=== PATIENT | female | born 1965 | race Caucasian/White ===

== ENCOUNTER → 2017-09-06 | Day surgery (SDC) | payer BC ==
[~2017-09-06] MED LIST: ALBUTEROL SULF8.5 GM; CARVEDILOL12.5 MG PO; FARXIGA PO; FENTANYL CITRATE/PF 100MCG/2 ML INJ ONE; FUROSEMIDE40 MG PO; GLIMEPIRIDE4 MG PO; HYDRALAZINE HCL 20 MG/ML VIAL ONE; HYDRALAZINE HCL25 MG PO; INSULIN REGULAR, HUMAN 100 UNIT/1 ML 3ML VIAL ONE; K DUR10 MEQ PO; LASIX40 MG PO; LEVAQUIN500 MG PO; LISINOPRIL10 MG PO; LOSARTAN POTAS100 MG PO; METFORMIN HCL500 MG PO; METOLAZONE5 MG PO; MIDAZOLAM HCL 2 MG/2 ML VIAL ONE; OR PHACO EYE KIT ONE; PIOGLITAZONE HC45 MG PO; PREOP PHACO EYE KIT ONE; TRIAMTERENE-HCTZ1 EA PO; Z.0.ABILIFY10 MG PO; Z.0.ACTOS15 MG PO; Z.0.GLIPIZIDE10 MG PO; Z.0.JANUVIA25 MG PO; Z.0.LAMICTAL200 MG PO
== END | disposition home or self-care (01) ==
LOC: OR 05:00
PROVIDERS: ATTEND Ophthalmology
DX: H25.12 Age-related nuclear cataract, left eye (principal); E11.9 Type 2 diabetes mellitus without complications; I11.0 Hypertensive heart disease with heart failure; I50.42 Chronic combined systolic (congestive) and diastolic (congestive) heart failure; F32.9 Major depressive disorder, single episode, unspecified
CPT/HCPCS: 66984; J0360; J2250; V2632

== ENCOUNTER 2017-12-11 09:07 | Inpatient (IN) | payer BC ==
[~2017-12-11] VITALS: Ht 160 cm; Wt 104.3 kg
[~2017-12-11 09:07] MED LIST changes: -FENTANYL CITRATE/PF 100MCG/2 ML INJ ONE; -HYDRALAZINE HCL 20 MG/ML VIAL ONE; -INSULIN REGULAR, HUMAN 100 UNIT/1 ML 3ML VIAL ONE; -MIDAZOLAM HCL 2 MG/2 ML VIAL ONE; -OR PHACO EYE KIT ONE; -PREOP PHACO EYE KIT ONE
[2017-12-11] MEDS ORDERED: LEVAQUIN500 MG PO (09:31)
[2017-12-11] MEDS ORDERED: MORPHINE SULFATE 4 MG/ML SYR IV STA (10:17)
[2017-12-11] MEDS ORDERED: SODIUM CHLORIDE 0.9% 1000ML 1,000 ML IV STA (10:17)
[2017-12-11 10:31] LABS: BASOPHILS # (AUTO) 0.1 (0.0-0.1); BASOPHILS % 0.4 % (0.0-1.0); EOSINOPHILS # (AUTO) 0.3 (0.0-0.4); EOSINOPHILS % 2.2 % (0.0-6.0); HEMATOCRIT 31.1 % (34.2-44.1); HEMOGLOBIN 10.1 g/dL (12.0-16.0); LYMPHOCYTES # (AUTO) 2.1 (1.0-3.2); LYMPHOCYTES % 14.1 % (18.0-39.1); MEAN CORPUSCULAR HEMOGLOBIN 25.8 pg (28-32); MEAN CORPUSCULAR HGB CONC 32.5 g/dL (31-35); MEAN CORPUSCULAR VOLUME 79.5 fL (81-99); MONOCYTES # (AUTO) 0.9 (0.2-0.8); MONOCYTES % 5.9 % (4.4-11.3); NEUTROPHILS # (AUTO) 11.1 (2.1-6.9); NEUTROPHILS % 76.5 % (38.7-80.0); PLATELET COUNT 469 x10e3/uL (140-360); RED BLOOD COUNT 3.91 x10e6/uL (3.6-5.1); RED CELL DISTRIBUTION WIDTH 14.7 % (11.7-14.4)
[2017-12-11 10:35] LABS: INR 1.15; PARTIAL THROMBOPLASTIN TIME 29.4 seconds (23.8-35.5); PROTHROMBIN TIME 13.8 seconds (11.9-14.5)
[2017-12-11] MEDS ORDERED: MORPHINE SULFATE 2 MG/ML SYR ONE (10:36)
[2017-12-11 10:45] LABS: ALANINE AMINOTRANSFERASE 10 IU/L (0-55); ALBUMIN/GLOBULIN RATIO 0.8 (0.8-2.0); ALKALINE PHOSPHATASE 118 IU/L (40-150); AMYLASE 34 U/L (25-125); ANION GAP 16.5 mmol/L (8-16); BLOOD UREA NITROGEN 67 mg/dL (7-26); BUN/CREATININE RATIO 30 (6-25); CALCIUM 9.2 mg/dL (8.4-10.2); CARBON DIOXIDE 17 mmol/L (22-29); CHLORIDE 106 mmol/L (98-107); CREATINE KINASE 67 IU/L (29-168); CREATININE, SERUM 2.24 mg/dL (0.57-1.11); EST GLOMERULAR FILTRATION RATE 23 ML/MIN (60-); GLUCOSE 232 mg/dL (74-118); LIPASE 11 U/L (8-78); POTASSIUM 4.5 mmol/L (3.5-5.1); SODIUM 135 mmol/L (136-145)
[2017-12-11] MEDS ORDERED: ONDANSETRON HCL INJ 2 MG/ML VIAL IV ONE (11:00)
[2017-12-11] MEDS ORDERED: DIATRIZOATE MEGL/DIATRIZOA SOD 30 ML BTL PO ONE (11:05)
--- NOTE | 2017-12-11 11:55 | Diagnostic Imaging Report ---
EXAM: US GALLBLADDER DATE: 12/11/2017 10:17 AM INDICATION: \S\ABD PAIN \S\[id number] \S\1050 \S\Y COMPARISON: None FINDINGS: Bowel gas obscures detail. Aorta and pancreas are suboptimally evaluated. Liver measures 15.4 cm with no definite focal mass. Portal venous flow is normal. Echotexture is unremarkable. No shadowing gallstones identified. Common duct is normal at 0.5 cm. No wall thickening or pericholecystic fluid. Right kidney measures 10 cm. Echogenic foci measuring 0.6 cm and 1.2 cm present, possibly representing cortical calcifications or nonobstructing calculi. IMPRESSION: Within limitations of body habitus and bowel gas, no definite acute finding. Signed by: Dr. Saul Hyatt MD on 12/11/2017 11:51 AM
--- NOTE | 2017-12-11 13:34 | Diagnostic Imaging Report ---
EXAM: CT Abdomen and Pelvis WITHOUT contrast INDICATION: Abdominal pain COMPARISON: Same day ultrasound TECHNIQUE: Abdomen and Pelvis was scanned utilizing a multidetector helical scanner without the use of IV contrast. Coronal and sagittal reformations were obtained. IV CONTRAST: None COMPLICATIONS: None RADIATION DOSE: Total DLP: 861 mGy*cm Estimated effective dose: (DLP x 0.015 x size factor) mSv CTDIvol has been reviewed. It is below the limits set by the Radiation Protocol Committee (RPC). FINDINGS: Abdomen: Lung Bases: Atelectasis. Moderate inferior pericardial effusion partially visualized. Solid Organs: Nonenhanced images solid organs unremarkable. Mild bilateral perinephric stranding statistically senescent. Upper GI Tract: Small hiatal hernia. No small bowel obstructive change. Vascularity: Moderate mesenteric atherosclerotic changes. No aortic aneurysm. Lymph Nodes: No suspicious adenopathy. Other: None. Pelvis: Bladder: Unremarkable. Other: Iliac vascular calcifications. Uterus/adnexa poorly evaluated nonenhanced CT, grossly unremarkable. Probable small calcified fibroid on the right. Colon: No acute colonic findings. Bones: Moderate L5-S1 degenerative disc disease. Probable T11 bone island. IMPRESSION: 1. No acute findings abdomen or pelvis. 2. Vascular calcifications most notably in the mesenteric arteries and iliac arteries. Correlation for diabetes. 3. L5-S1 degenerative disc disease. 4. Partially visualized pericardial effusion. Correlation recommended. Signed by: Dr. Saul Hyatt MD on 12/11/2017 1:31 PM
[2017-12-11] MEDS ORDERED: ONDANSETRON HCL INJ 2 MG/ML VIAL IV PRN (14:45)
[2017-12-11] MEDS ORDERED: MORPHINE SULFATE 2 MG/ML SYR IV PRN (14:45)
[2017-12-11] MEDS: SODIUM CHLORIDE 0.9% 1000ML 1,000 ML IV SCH (14:58)
[2017-12-11] MEDS ORDERED: SODIUM CHLORIDE 0.9% 1000ML 1,000 ML ONE (15:00)
--- OUTSIDE RECORDS SUMMARY | 2017-12-11 15:27 | XMS REPORT ---
Author Author [facility] Address Unknown Phone Unavailable Care Team Providers Care Copying Machine Mechanic Name Role Phone BILLY FENTON Unavailable Unavailable Problems This patient has no known problems. Allergies, Adverse Reactions, Alerts This patient has no known allergies or adverse reactions. Medications This patient has no known medications. Results Test Description Test Time Test Comments Text Results Atomic Results Result Comments CT ABDOMEN/PELVIS WO [place] [address] Patient Name: JEN LARA MR #: [id number] : 1965 Age/Sex: 52/F Req #: [id number] Adm Physician: Ordered by: STEFFANY WALDRON STOCK GRADER Report #: [id number] Location: ER Room/Bed: Procedure: [id number] CT/CT ABDOMEN/PELVIS WO Exam Date: 12/11/17 Exam Time: 1306 REPORT STATUS: Signed EXAM: CT Abdomen and Pelvis WITHOUT contrast INDICATION: Abdominal pain COMPARISON : Same day ultrasound TECHNIQUE: Abdomen and Pelvis was scanned utilizing a multidetector helical scanner without the use of IV contrast. Coronal and sagittal reformations were obtained. IV CONTRAST: None COMPLICATIONS: None RADIATION DOSE: Total DLP: 861 mGy*cm Estimated effective dose: (DLP x 0.015 x size factor) mSv CTDIvol has been reviewed. It is below the limits set by the Radiation Protocol Committee (RPC). FINDINGS: Abdomen: Lung Bases: Atelectasis. Moderate inferior pericardial effusion partially visualized. Solid Organs: Nonenhanced images solid organs unremarkable. Mild bilateral perinephric stranding statistically senescent. Upper GI Tract: Small hiatal hernia. No small bowel obstructive change. Vascularity: Moderate mesenteric atherosclerotic changes. No aortic aneurysm. Lymph Nodes: No suspicious adenopathy. Other: None. Pelvis: Bladder: Unremarkable. Other: Iliac vascular calcifications. Uterus/adnexa poorly evaluated nonenhanced CT, grossly unremarkable. Probable small calcified fibroid on the right. Colon: No acute colonic findings. Bones: Moderate L5-S1 degenerative disc disease. Probable T11 bone island. IMPRESSION: 1. No acute findings abdomen or pelvis. 2. Vascular calcifications most notably in the mesenteric arteries and iliac arteries. Correlation for diabetes. 3. L5-S1 degenerative disc disease. 4. Partially visualized pericardial effusion. Correlation recommended. Signed by: Dr. Saul Hyatt MD on 12/11/2017 1:31 PM Dictated By: SAUL HYATT MD 1331 Transcribed By: CARLOS on 12/11/17 1331 COPY TO: STEFFANY WALDRON NP US GALLBLADDER [place] [address] Patient Name: JEN LARA MR #: [id number] : 1965 Age/Sex: 52/F Req #: [id number] Adm Physician: Ordered by: STEFFANY WALDRON STOCK GRADER Report #: [id number] Location: ER Room/Bed: Procedure: [id number] US/US GALLBLADDER Exam Date: 12/11/17 Exam Time : 1050 REPORT STATUS: Signed EXAM: US GALLBLADDER DATE: 12/11/2017 10:17 AM INDICATION: COMPARISON: None FINDINGS: Bowel gas obscures detail. Aorta and pancreas are suboptimally evaluated. Liver measures 15.4 cm with no definite focal mass. Portal venous flow is normal. Echotexture is unremarkable. No shadowing gallstones identified. Common duct is normal at 0.5 cm. No wall thickening or pericholecystic fluid. Right kidney measures 10 cm. Echogenic foci measuring 0.6 cm and 1.2 cm present, possibly representing cortical calcifications or nonobstructing calculi. IMPRESSION: Within limitations of body habitus and bowel gas, no definite acute finding. Signed by: Dr. Saul Hyatt MD on 12/11/2017 11:51 AM Dictated By: SAUL HYATT MD 1151 Transcribed By: CARLOS on 12/11/17 1151 COPY TO: STEFFANY WALDRON NP
[2017-12-11 16:00] VITALS: BP 190/80
[2017-12-11 16:14] LABS: BILIRUBIN,URINE NEGATIVE (NEGATIVE); COLOR,URINE YELLOW (YELLOW); KETONES,URINE NEGATIVE (NEGATIVE); LEUKOCYTE ESTERASE ,URINE 2+ (NEGATIVE); NITRITE,URINE NEGATIVE (NEGATIVE); URINE UROBILINOGEN 0.2 mg/dL (0.2 - 1)
[2017-12-11 16:16] LABS: CLARITY,URINE SL CLOUDY (CLEAR); PROTEIN,URINE DIPSTICK 1+ (NEGATIVE)
[2017-12-11 16:20] VITALS: BP 190/80
[2017-12-11 16:28] LABS: BACTERIA,URINE MODERATE /HPF; EPITHELIAL CELLS,URINE MANY /LPF; RBC,URINE 0-5 /HPF (0-5); WBC,URINE (MAN) >50 /HPF (0-5)
[2017-12-11] MEDS ORDERED: CLONIDINE HCL 0.1 MG TAB PO PRN (16:30)
[2017-12-11] MEDS: INSULIN REGULAR, HUMAN 100 UNIT/1 ML 3ML VIAL SQ SCH ×2 (16:30→20:55)
[2017-12-11] MEDS ORDERED: DEXTROSE 50% SYRINGE 50 ML IV PRN (16:45)
[2017-12-11] MEDS: CARVEDILOL 12.5 MG TAB PO SCH (17:11)
[2017-12-11] MEDS: METFORMIN HCL 500 MG TAB PO SCH (17:11)
[2017-12-11 19:57] VITALS: BP 142/70
[2017-12-11 20:00] VITALS: BP 142/70
[2017-12-11] MEDS: LEVOFLOXACIN 500MG/D5W 100ML 100 ML IV SCH (20:54)
[2017-12-11] MEDS: LOSARTAN POTASSIUM 100 MG TAB PO SCH (20:54)
[2017-12-11] MEDS ORDERED: INSULIN REGULAR, HUMAN 100 UNIT/1 ML 3ML VIAL SQ SCH (21:00)
[2017-12-11] MEDS ORDERED: PIPER-TAZ 3.375 GM/50 ML BAG IV SCH (22:00)
[2017-12-12 00:28] VITALS: BP 138/71
[2017-12-12] MEDS: SODIUM CHLORIDE 0.9% 1000ML 1,000 ML IV SCH ×4 (00:56→22:40)
[2017-12-12 05:51] VITALS: BP 159/78
[2017-12-12 06:45] LABS: BASOPHILS % 0.3 % (0.0-1.0); EOSINOPHILS # (AUTO) 0.3 (0.0-0.4); EOSINOPHILS % 2.3 % (0.0-6.0); HEMATOCRIT 25.2 % (34.2-44.1); HEMOGLOBIN 8.1 g/dL (12.0-16.0); LYMPHOCYTES # (AUTO) 2.1 (1.0-3.2); LYMPHOCYTES % 19.1 % (18.0-39.1); MEAN CORPUSCULAR HGB CONC 32.1 g/dL (31-35); MEAN CORPUSCULAR VOLUME 80.8 fL (81-99); MONOCYTES # (AUTO) 0.9 (0.2-0.8); MONOCYTES % 7.7 % (4.4-11.3); NEUTROPHILS # (AUTO) 7.8 (2.1-6.9); NEUTROPHILS % 69.9 % (38.7-80.0); PLATELET COUNT 339 x10e3/uL (140-360); RED BLOOD COUNT 3.12 x10e6/uL (3.6-5.1); RED CELL DISTRIBUTION WIDTH 14.6 % (11.7-14.4)
[2017-12-12 07:15] LABS: ALANINE AMINOTRANSFERASE 8 IU/L (0-55); ALBUMIN 2.4 g/dL (3.5-5.0); ALBUMIN/GLOBULIN RATIO 0.8 (0.8-2.0); ALKALINE PHOSPHATASE 85 IU/L (40-150); AMYLASE 27 U/L (25-125); ANION GAP 12.3 mmol/L (8-16); BLOOD UREA NITROGEN 57 mg/dL (7-26); BUN/CREATININE RATIO 31 (6-25); CALCIUM 8.1 mg/dL (8.4-10.2); CARBON DIOXIDE 15 mmol/L (22-29); CHLORIDE 111 mmol/L (98-107); CREATININE, SERUM 1.82 mg/dL (0.57-1.11); EST GLOMERULAR FILTRATION RATE 29 ML/MIN (60-); GLUCOSE 99 mg/dL (74-118); LIPASE 5 U/L (8-78); POTASSIUM 4.3 mmol/L (3.5-5.1); SODIUM 134 mmol/L (136-145)
[2017-12-12] MEDS: INSULIN REGULAR, HUMAN 100 UNIT/1 ML 3ML VIAL SQ SCH ×4 (07:30→22:30)
[2017-12-12 08:00] VITALS: BP 160/68
[2017-12-12] MEDS: FUROSEMIDE 40 MG TAB PO SCH (08:51)
[2017-12-12] MEDS: CARVEDILOL 12.5 MG TAB PO SCH ×2 (08:51→17:16)
[2017-12-12] MEDS: METFORMIN HCL 500 MG TAB PO SCH ×2 (08:51→17:16)
[2017-12-12 12:00] VITALS: BP 140/67
[2017-12-12 16:00] VITALS: BP 155/67
[2017-12-12 20:00] VITALS: BP 157/70
[2017-12-12] MEDS: LEVOFLOXACIN 500MG/D5W 100ML 100 ML IV SCH (22:30)
[2017-12-12] MEDS: LOSARTAN POTASSIUM 100 MG TAB PO SCH (22:30)
[2017-12-13] VITALS: BP 141/62
[2017-12-13 04:20] VITALS: BP 159/70
[2017-12-13] MEDS: SODIUM CHLORIDE 0.9% 1000ML 1,000 ML IV SCH (06:15)
[2017-12-13 06:37] LABS: BASOPHILS % 0.3 % (0.0-1.0); EOSINOPHILS # (AUTO) 0.4 (0.0-0.4); HEMATOCRIT 26.9 % (34.2-44.1); HEMOGLOBIN 8.8 g/dL (12.0-16.0); LYMPHOCYTES # (AUTO) 2.3 (1.0-3.2); LYMPHOCYTES % 19.9 % (18.0-39.1); MEAN CORPUSCULAR HEMOGLOBIN 26.2 pg (28-32); MEAN CORPUSCULAR HGB CONC 32.7 g/dL (31-35); MEAN CORPUSCULAR VOLUME 80.1 fL (81-99); MONOCYTES % 8.5 % (4.4-11.3); NEUTROPHILS # (AUTO) 7.9 (2.1-6.9); NEUTROPHILS % 67.6 % (38.7-80.0); PLATELET COUNT 365 x10e3/uL (140-360); RED BLOOD COUNT 3.36 x10e6/uL (3.6-5.1); RED CELL DISTRIBUTION WIDTH 14.7 % (11.7-14.4)
[2017-12-13 06:54] LABS: ALANINE AMINOTRANSFERASE 7 IU/L (0-55); ALBUMIN 2.7 g/dL (3.5-5.0); ALBUMIN/GLOBULIN RATIO 0.8 (0.8-2.0); ALKALINE PHOSPHATASE 93 IU/L (40-150); ANION GAP 16.1 mmol/L (8-16); BLOOD UREA NITROGEN 46 mg/dL (7-26); BUN/CREATININE RATIO 29 (6-25); CALCIUM 8.4 mg/dL (8.4-10.2); CARBON DIOXIDE 12 mmol/L (22-29); CHLORIDE 114 mmol/L (98-107); CREATININE, SERUM 1.56 mg/dL (0.57-1.11); EST GLOMERULAR FILTRATION RATE 35 ML/MIN (60-); GLUCOSE 126 mg/dL (74-118); POTASSIUM 4.1 mmol/L (3.5-5.1); SODIUM 138 mmol/L (136-145)
[2017-12-13] MEDS: INSULIN REGULAR, HUMAN 100 UNIT/1 ML 3ML VIAL SQ SCH ×2 (07:30→11:30)
[2017-12-13 08:00] VITALS: BP 149/65
[2017-12-13] MEDS: METFORMIN HCL 500 MG TAB PO SCH (08:55)
[2017-12-13] MEDS: CARVEDILOL 12.5 MG TAB PO SCH (08:55)
[2017-12-13] MEDS: FUROSEMIDE 40 MG TAB PO SCH (08:57)
[2017-12-13 12:00] VITALS: BP 146/61
== END 2017-12-13 14:30 | disposition home or self-care (01) | DRG 690 ==
LOC: ER 09:18 → ERHOLD 15:24 → MED/SURG2 15:26
PROVIDERS: ADMIT Internal Medicine; ATTEND Internal Medicine
DX: N39.0 Urinary tract infection, site not specified (principal); N17.9 Acute kidney failure, unspecified; E11.22 Type 2 diabetes mellitus with diabetic chronic kidney disease; N18.3 Chronic kidney disease, stage 3 (moderate); I12.9 Hypertensive chronic kidney disease with stage 1 through stage 4 chronic kidney disease, or unspecified chronic kidney disease; E86.0 Dehydration; F31.9 Bipolar disorder, unspecified
CPT/HCPCS: 36415; 74176; 76705; 80053; 81001; 82150; 82550; 82553; 82948; 83690; 83735; 83880; 84484; 85025; 85610; 85730; 93005; 99284; J1956; J2270; J2405; J7030

== ENCOUNTER 2018-09-28 11:39 | Inpatient (IN) | payer BC ==
[~2018-09-28] VITALS: Ht 160 cm; Wt 112.0 kg
[2018-09-28] MEDS ORDERED: FUROSEMIDE INJ 10 MG/ML 4 ML VIAL IV ONE (12:15)
[2018-09-28 12:25] LABS: BASOPHILS # (AUTO) 0.1 (0.0-0.1); BASOPHILS % 0.4 % (0.0-1.0); EOSINOPHILS # (AUTO) 0.4 (0.0-0.4); EOSINOPHILS % 2.7 % (0.0-6.0); HEMATOCRIT 27.3 % (34.2-44.1); HEMOGLOBIN 8.7 g/dL (12.0-16.0); LYMPHOCYTES # (AUTO) 2.3 (1.0-3.2); LYMPHOCYTES % 15.3 % (18.0-39.1); MEAN CORPUSCULAR HEMOGLOBIN 25.3 pg (28-32); MEAN CORPUSCULAR HGB CONC 31.9 g/dL (31-35); MEAN CORPUSCULAR VOLUME 79.4 fL (81-99); MONOCYTES # (AUTO) 1.2 (0.2-0.8); MONOCYTES % 8.1 % (4.4-11.3); NEUTROPHILS % 72.9 % (38.7-80.0); PLATELET COUNT 485 x10e3/uL (140-360); RED BLOOD COUNT 3.44 x10e6/uL (3.6-5.1); RED CELL DISTRIBUTION WIDTH 14.2 % (11.7-14.4)
[2018-09-28 12:46] LABS: ALBUMIN 2.6 g/dL (3.5-5.0); ALBUMIN/GLOBULIN RATIO 0.7 (0.8-2.0); ANION GAP 15.7 mmol/L (8-16); CALCIUM 8.8 mg/dL (8.4-10.2); CREATININE, SERUM 2.24 mg/dL (0.57-1.11); POTASSIUM 3.7 mmol/L (3.5-5.1)
[2018-09-28 12:54] LABS: CREATINE KINASE MB 3.9 ng/mL (0-5.0)
--- NOTE | 2018-09-28 14:15 | Diagnostic Imaging Report ---
Examination: Single AP view of the chest. COMPARISON: 03/30/2017 INDICATION: CHF DISCUSSION: As before, the cardiac silhouette is mildly enlarged. The lungs are well-inflated and without focal consolidation, pleural effusion, or pneumothorax. Pulmonary vasculature is within normal limits when accounting for portable, AP technique, without evidence of pulmonary edema. No acute osseous abnormality. IMPRESSION: Mild enlargement of the cardiac silhouette without vascular decompensation. Signed by: Dr. Jerzy Cárdenas M.D. on 09/28/2018 2:11 PM
[2018-09-28] MEDS ORDERED: AZITHROMYCIN 500MG/NS 250 ML 250 ML IV SCH ×2 (15:15→16:00)
[2018-09-28] MEDS ORDERED: CEFTRIAXONE SOD 1 GM/NS 50 ML 50 ML IV ONE (15:15)
--- NOTE | 2018-09-28 15:45 | NUR ---
RECD PT FROM ER VIA W/C,AAOX3,O2 2L NC IN PLACE O2 SATS 97%,IV 20 G TO RAC,
[2018-09-28] MEDS ORDERED: NIFEDIPINE ER30 M1 PO (15:53)
[2018-09-28] MEDS ORDERED: VITAMIN D1000 UNI1 PO (15:53)
[2018-09-28 15:55] VITALS: BP 195/97
[2018-09-28] MEDS ORDERED: DULAGLUTIDE IM (15:55)
[2018-09-28] MEDS ORDERED: JANUVIA100 MG PO (15:55)
[2018-09-28] MEDS ORDERED: DULAGLUTIDE 1.5 MG IM SCH (16:15)
[2018-09-28 16:30] VITALS: BP 197/97
[2018-09-28] MEDS ORDERED: DEXTROSE 50% SYRINGE 50 ML IV PRN (16:30)
[2018-09-28] MEDS ORDERED: SODIUM CHLORIDE 0.9% 250ML 250 ML ONE (16:38)
[2018-09-28] MEDS ORDERED: METFORMIN HCL 500 MG TAB PO SCH (17:00)
--- NOTE | 2018-09-28 17:00 | NUR ---
SPOKE WITH DR BONDS RE;HOME MEDS AND HIGH BP.ORDERS WRITTEN
[2018-09-28] MEDS: CARVEDILOL 12.5 MG TAB PO SCH (17:30)
[2018-09-28] MEDS: INSULIN REGULAR, HUMAN 100 UNIT/1 ML 3ML VIAL SQ SCH ×2 (17:30→22:00)
[2018-09-28] MEDS: SITAGLIPTIN 100 MG TAB PO SCH (17:34)
[2018-09-28] MEDS: NIFEDIPINE CR 30 MG TAB PO SCH (17:34)
--- NOTE | 2018-09-28 17:36 | NUR ---
HOME BP MEDS GIVEN INSULIN GIVEN PER S/S
[2018-09-28] MEDS ORDERED: ONDANSETRON HCL INJ 2 MG/ML VIAL IV PRN (18:00)
--- NOTE | 2018-09-28 19:10 | NUR ---
REPORT RECEIVED FROM OFF GOING NURSE, PT RESTING IN BED ALERT AND ORIENTED, NO DISTRESS NOTED, DENIES NEEDS, CALL LIGHT IN REACH, INSTRUCTED TO CALL WITH NEEDS
[2018-09-28 20:00] VITALS: BP 157/85
[2018-09-28 21:00] LABS: CREATINE KINASE MB 3.9 ng/mL (0-5.0)
[2018-09-29] VITALS (9 sets, daily range): BP systolic 120–181; BP diastolic 59–87
--- NOTE | 2018-09-29 05:27 | NUR ---
PT RESTING IN BED WITH EYES CLOSED, NO DISTRESS NOTED, CALL LIGHT IN REACH
[2018-09-29 06:18] LABS: ALBUMIN 2.3 g/dL (3.5-5.0); ALBUMIN/GLOBULIN RATIO 0.6 (0.8-2.0); ANION GAP 15.9 mmol/L (8-16); CALCIUM 8.4 mg/dL (8.4-10.2); CREATININE, SERUM 2.13 mg/dL (0.57-1.11); POTASSIUM 3.9 mmol/L (3.5-5.1)
[2018-09-29 06:46] LABS: BASOPHILS # (AUTO) 0.1 (0.0-0.1); BASOPHILS % 0.4 % (0.0-1.0); EOSINOPHILS # (AUTO) 0.3 (0.0-0.4); EOSINOPHILS % 1.9 % (0.0-6.0); HEMATOCRIT 26.1 % (34.2-44.1); HEMOGLOBIN 8.3 g/dL (12.0-16.0); MEAN CORPUSCULAR HEMOGLOBIN 25.6 pg (28-32); MEAN CORPUSCULAR HGB CONC 31.8 g/dL (31-35); MEAN CORPUSCULAR VOLUME 80.6 fL (81-99); MONOCYTES # (AUTO) 0.9 (0.2-0.8); MONOCYTES % 6.1 % (4.4-11.3); NEUTROPHILS # (AUTO) 10.8 (2.1-6.9); PLATELET COUNT 417 x10e3/uL (140-360); RED BLOOD COUNT 3.24 x10e6/uL (3.6-5.1); RED CELL DISTRIBUTION WIDTH 14.1 % (11.7-14.4)
[2018-09-29 07:00] LABS: CREATINE KINASE MB 3.6 ng/mL (0-5.0)
--- NOTE | 2018-09-29 07:08 | NUR ---
RECEIVED PATIENT RESTING IN BED. NO ACUTE DISTRESS NOTED. CALL LIGHT WITHIN REACH. BED IN THE LOWEST POSITION.
[2018-09-29] MEDS: INSULIN REGULAR, HUMAN 100 UNIT/1 ML 3ML VIAL SQ SCH ×4 (07:30→20:32)
[2018-09-29] MEDS: CARVEDILOL 12.5 MG TAB PO SCH ×2 (08:40→17:24)
[2018-09-29] MEDS: SITAGLIPTIN 100 MG TAB PO SCH (08:40)
[2018-09-29] MEDS: GLIMEPIRIDE 2 MG TAB PO SCH (08:40)
[2018-09-29] MEDS: CHOLECALCIFEROL 1,000 UNIT TAB PO SCH (08:41)
[2018-09-29] MEDS: NIFEDIPINE CR 30 MG TAB PO SCH (08:41)
[2018-09-29] MEDS: FUROSEMIDE INJ 10 MG/ML 4 ML VIAL IV SCH ×2 (08:42→17:24)
[2018-09-29] MEDS ORDERED: FUROSEMIDE 20 MG TAB PO SCH (09:00)
[2018-09-29] MEDS ORDERED: FUROSEMIDE INJ 10 MG/ML 4 ML VIAL IV SCH (09:00)
[2018-09-29] MEDS ORDERED: FUROSEMIDE 40 MG TAB PO SCH (09:00)
[2018-09-29] MEDS ORDERED: NON-FORMULARY MEDICATION (Glimepiride 4 MG) PO SCH (09:00)
--- NOTE | 2018-09-29 13:29 | NUR ---
Nutrition Screen Note RD Recommendation for Physician: -Rec adding ADA to cardiac diet -RD provided ADA/ heart healthy diet education per pt request. 09/29 Plan of Care: RD following, monitoring for tolerance and adequacy Nutrition reason for involvement: Nutrition Risk Trigger MST Primary Diagnose(s): CHF PMH: CHF, DM Ht: 63in Wt: 246.5lb BMI: 43.7kg/m2 IBW: 115lb RD Assessment: (09/29/18) Chart reviewed. Labs and meds reviewed. 52yo F, who is admitted for CHF. Currently on insulin and Lasix. Visited pt in the room. Pt reports good appetite with 100% recorded meal intake. No GI complains noted. LBM 09/28, normal per pt. No complains of chewing or swallowing difficulty. No recent weight loss reported. Will continue to monitor and follow. Current Diet: Cardiac diet Malnutrition Evaluation (09/29/2018) The patient does not meet criteria for a specified degree of malnutrition at this time. Will re-evaluate at follow-up as appropriate. Diet Education Needs Assessment: Diet education indicated, pt is agreeable with plan. Nutrition Education Learner(s): pt Barriers: Habit of eating out Cultural/Language Modifications: No cultural/language modifications noted. Pt speaks [place]. Readiness: Pt eager to learn. Method: handouts, explanation Topics: Heart healthy/ consistent CHO diet, serving sizes, label reading Understanding/Compliance: All questions have been answered. Will benefit from reinforcement. Nutrition Care Level: low Signed: Mary Feliciano, MS, RD, LD
--- NOTE | 2018-09-29 19:27 | NUR ---
REPORT GIVEN TO ONCOMING NURSE. PATIENT IS RESTING IN RECLINER. NO ACUTE DISTRESS NOTED. CALL LIGHT WITHIN REACH. BED IN THE LOWEST POSITION.
[2018-09-29] MEDS: LORAZEPAM INJ 2 MG/ML VIAL IV PRN (21:27)
[2018-09-30] VITALS (7 sets, daily range): BP systolic 118–179; BP diastolic 56–76
--- NOTE | 2018-09-30 05:49 | NUR ---
PT RESTING IN BED WITH EYES CLOSED, NO DISTRESS NOTED, OPENS EYES UPON APPROACH, DENIES NEEDS, CALL LIGHT IN REACH, INSTRUCTED TO CALL WITH NEEDS
[2018-09-30 06:45] LABS: BASOPHILS # (AUTO) 0.1 (0.0-0.1); BASOPHILS % 0.3 % (0.0-1.0); EOSINOPHILS # (AUTO) 0.5 (0.0-0.4); EOSINOPHILS % 3.4 % (0.0-6.0); HEMATOCRIT 23.2 % (34.2-44.1); HEMOGLOBIN 7.4 g/dL (12.0-16.0); LYMPHOCYTES # (AUTO) 2.8 (1.0-3.2); LYMPHOCYTES % 19.3 % (18.0-39.1); MEAN CORPUSCULAR HEMOGLOBIN 25.3 pg (28-32); MEAN CORPUSCULAR HGB CONC 31.9 g/dL (31-35); MEAN CORPUSCULAR VOLUME 79.5 fL (81-99); MONOCYTES # (AUTO) 1.2 (0.2-0.8); MONOCYTES % 8.2 % (4.4-11.3); NEUTROPHILS # (AUTO) 9.9 (2.1-6.9); NEUTROPHILS % 68.3 % (38.7-80.0); PLATELET COUNT 414 x10e3/uL (140-360); RED BLOOD COUNT 2.92 x10e6/uL (3.6-5.1); RED CELL DISTRIBUTION WIDTH 14.4 % (11.7-14.4)
[2018-09-30 06:57] LABS: ALBUMIN 2.3 g/dL (3.5-5.0); ALBUMIN/GLOBULIN RATIO 0.7 (0.8-2.0); ANION GAP 15.9 mmol/L (8-16); CALCIUM 8.6 mg/dL (8.4-10.2); CREATININE, SERUM 2.1 mg/dL (0.57-1.11); POTASSIUM 3.9 mmol/L (3.5-5.1)
[2018-09-30] MEDS ORDERED: BUMETANIDE 1 MG TAB PO ONE (07:00)
--- NOTE | 2018-09-30 07:04 | NUR ---
RECEIVED PATIENT IS SITTING UP IN BED, NO ACUTE DISTRESS NOTED. CALL LIGHT WITHIN REACH. BED IN THE LOWEST POSITION.
[2018-09-30] MEDS: INSULIN REGULAR, HUMAN 100 UNIT/1 ML 3ML VIAL SQ SCH ×4 (07:30→20:56)
[2018-09-30] MEDS: CHOLECALCIFEROL 1,000 UNIT TAB PO SCH (09:00)
[2018-09-30] MEDS: CARVEDILOL 12.5 MG TAB PO SCH ×2 (09:07→17:13)
[2018-09-30] MEDS: GLIMEPIRIDE 2 MG TAB PO SCH (09:07)
[2018-09-30] MEDS: FUROSEMIDE INJ 10 MG/ML 4 ML VIAL IV SCH ×2 (09:07→17:12)
[2018-09-30] MEDS: SITAGLIPTIN 100 MG TAB PO SCH (09:10)
[2018-09-30] MEDS: NIFEDIPINE CR 30 MG TAB PO SCH (09:10)
--- NOTE | 2018-09-30 19:05 | NUR ---
REPORT RECEIVED FROM OFF GOING NURSE, PT ALERT AND ORIENTED, SITTING IN RECLINER CHAIR AT BEDSIDE, DENIES NEEDS, INSTRUCTED TO CALL WITH NEEDS
--- NOTE | 2018-09-30 19:08 | NUR ---
REPORT GIVEN TO ONCOMING NURSE, PATIENT IS RESTING IN RECLINER. NO DISTRESS NOTED. CALL LIGHT WITHIN REACH. BED IN THE LOWEST POSITION.
[2018-09-30] MEDS: LORAZEPAM INJ 2 MG/ML VIAL IV PRN (20:57)
[2018-10-01] VITALS (8 sets, daily range): BP systolic 133–175; BP diastolic 63–79
--- NOTE | 2018-10-01 05:08 | NUR ---
PT RESTING IN BED WITH EYES CLOSED, RISE AND FALL OF CHEST/ABD BREATHING NOTED, NO DISTRESS NOTED, CALL LIGHT IN REACH
[2018-10-01 06:40] LABS: BASOPHILS # (AUTO) 0.1 (0.0-0.1); BASOPHILS % 0.4 % (0.0-1.0); EOSINOPHILS # (AUTO) 0.3 (0.0-0.4); EOSINOPHILS % 2.2 % (0.0-6.0); HEMATOCRIT 23.2 % (34.2-44.1); HEMOGLOBIN 7.5 g/dL (12.0-16.0); LYMPHOCYTES # (AUTO) 1.7 (1.0-3.2); MEAN CORPUSCULAR HEMOGLOBIN 25.6 pg (28-32); MEAN CORPUSCULAR HGB CONC 32.3 g/dL (31-35); MEAN CORPUSCULAR VOLUME 79.2 fL (81-99); MONOCYTES # (AUTO) 0.9 (0.2-0.8); MONOCYTES % 6.6 % (4.4-11.3); NEUTROPHILS # (AUTO) 10.1 (2.1-6.9); NEUTROPHILS % 77.1 % (38.7-80.0); PLATELET COUNT 371 x10e3/uL (140-360); RED BLOOD COUNT 2.93 x10e6/uL (3.6-5.1); RED CELL DISTRIBUTION WIDTH 14.2 % (11.7-14.4)
[2018-10-01 07:01] LABS: ALBUMIN 2.3 g/dL (3.5-5.0); ALBUMIN/GLOBULIN RATIO 0.7 (0.8-2.0); ANION GAP 16.2 mmol/L (8-16); CALCIUM 8.7 mg/dL (8.4-10.2); CREATININE, SERUM 2.1 mg/dL (0.57-1.11); POTASSIUM 4.2 mmol/L (3.5-5.1)
--- NOTE | 2018-10-01 07:04 | NUR ---
RECEIVED PATIENT RESTING IN BED. RESPIRATIONS EVEN AND UNLABORED, NO ACUTE DISTRESS NOTED. CALL LIGHT WITHIN REACH. BED IN THE LOWEST POSITION.
[2018-10-01] MEDS ORDERED: BISACODYL 5 MG TAB EC PO SCH ×3 (07:15→14:00)
[2018-10-01] MEDS: FUROSEMIDE INJ 10 MG/ML 4 ML VIAL IV SCH ×2 (08:42→16:15)
[2018-10-01] MEDS: GLIMEPIRIDE 2 MG TAB PO SCH (08:42)
[2018-10-01] MEDS: CARVEDILOL 12.5 MG TAB PO SCH ×2 (08:42→16:15)
[2018-10-01] MEDS: NIFEDIPINE CR 30 MG TAB PO SCH (08:43)
[2018-10-01] MEDS: SITAGLIPTIN 100 MG TAB PO SCH (08:43)
[2018-10-01] MEDS: CHOLECALCIFEROL 1,000 UNIT TAB PO SCH (08:43)
[2018-10-01] MEDS: INSULIN REGULAR, HUMAN 100 UNIT/1 ML 3ML VIAL SQ SCH ×4 (08:45→21:55)
[2018-10-01] MEDS ORDERED: BISACODYL 5 MG TAB EC PO PRN (16:15)
--- NOTE | 2018-10-01 19:31 | NUR ---
REPORT GIVEN TO ONCOMING NURSE. PATIENT IS IN STABLE CONDITION, SHE IS RESTING IN THE RECLINER. NO ACUTE DISTRESS NOTED. CALL LIGHT WITHIN REACH. BED IN THE LOWEST POSITION.
--- NOTE | 2018-10-01 19:45 | NUR ---
PT IS RESTING IN THE RECLINER. NO RESPIRATORY DISTRESS NOTED. BED IN THE LOWEST POSITION, LOCKED, AND CALL LIGHT WITHIN REACH. WILL CONTINUE TO MONITOR.
[2018-10-01] MEDS: LORAZEPAM INJ 2 MG/ML VIAL IV PRN (21:55)
[2018-10-02] VITALS (7 sets, daily range): BP systolic 106–164; BP diastolic 55–78
--- NOTE | 2018-10-02 06:58 | NUR ---
PT IS RESTING IN BED. NO RESPIRATORY DISTRESS NOTED. BED IN LOWEST POSITION, LOCKED, AND CALL LIGHT WITHIN REACH. WALKING ROUNDS COMPLETED WITH ONCOMING NURSE.
--- NOTE | 2018-10-02 07:25 | NUR ---
pt up in bed deniespain ,no distres ntoed.
[2018-10-02] MEDS: INSULIN REGULAR, HUMAN 100 UNIT/1 ML 3ML VIAL SQ SCH ×4 (08:00→21:55)
[2018-10-02] MEDS: FUROSEMIDE INJ 10 MG/ML 4 ML VIAL IV SCH ×2 (08:42→17:00)
[2018-10-02] MEDS: GLIMEPIRIDE 2 MG TAB PO SCH (08:42)
[2018-10-02] MEDS: SITAGLIPTIN 100 MG TAB PO SCH (08:43)
[2018-10-02] MEDS: CHOLECALCIFEROL 1,000 UNIT TAB PO SCH (08:43)
[2018-10-02] MEDS: NIFEDIPINE CR 30 MG TAB PO SCH (08:43)
[2018-10-02] MEDS: CARVEDILOL 12.5 MG TAB PO SCH ×2 (08:43→17:00)
--- NOTE | 2018-10-02 19:15 | NUR ---
Patient visited in room during nursing rounds. Patient alert and oriented x3. Ambulates with walker in room prn. No distress or discomfort noted. Call mullins within reach. Will monitor closely.
[2018-10-02] MEDS: LORAZEPAM INJ 2 MG/ML VIAL IV PRN (21:50)
[2018-10-03] VITALS: BP 122/59
[2018-10-03 04:00] VITALS: BP 111/52
--- NOTE | 2018-10-03 04:45 | NUR ---
Dr. Oglesby visited patient in room during rounds. MD wrote on chart notes plan to discharge today. Patient aware and excited to go home today. Patient plans to stay for breakfast then go home after. Awaiting on MD orders in [facility].
--- NOTE | 2018-10-03 05:32 | NUR ---
Patient resting in bed. No c/o pain or any discomfort at this time. Call mullins within reach.
--- NOTE | 2018-10-03 06:00 | NUR ---
Patient IV (20g) on left hand was taken out per patient request. Patient has discharge order to go home this morning by Dr. Oglesby. After IV taken out, site covered with 2x2 clean gauze with tape.
[2018-10-03 06:37] VITALS: BP 141/67
[2018-10-03 08:00] VITALS: BP 136/65
--- NOTE | 2018-10-03 10:05 | NUR ---
pt discharged home iv dcd without redness or swelling,transported to [facility] via w/c
== END 2018-10-03 10:05 | disposition home or self-care (01) | DRG 291 ==
LOC: ER 11:39 → ERHOLD 15:12 → MED/SURG3 15:15 → OBSVTOIN 09-30 07:39
PROVIDERS: ADMIT Internal Medicine; ATTEND Internal Medicine
DX: I13.0 Hypertensive heart and chronic kidney disease with heart failure and stage 1 through stage 4 chronic kidney disease, or unspecified chronic kidney disease (principal); I50.23 Acute on chronic systolic (congestive) heart failure; Z68.42 Body mass index [BMI] 45.0-49.9, adult; N18.3 Chronic kidney disease, stage 3 (moderate); E11.22 Type 2 diabetes mellitus with diabetic chronic kidney disease; Z79.4 Long term (current) use of insulin; D64.9 Anemia, unspecified; F41.9 Anxiety disorder, unspecified; E66.01 Morbid (severe) obesity due to excess calories
CPT/HCPCS: 36415; 71045; 80053; 82550; 82553; 82948; 83735; 83880; 84484; 85025; 93005; 93970; 99284; G0378; J0456; J0696; J1940; J2060; J2405; J7050

== ENCOUNTER 2018-10-11 23:12 | Emergency (ER) | payer BC ==
[~2018-10-11] VITALS: Ht 160 cm; Wt 108.4 kg
[~2018-10-11 23:12] MED LIST changes: +DULAGLUTIDE IM; +JANUVIA100 MG PO; +NIFEDIPINE ER30 M1 PO; +VITAMIN D1000 UNI1 PO
[2018-10-12 00:53] LABS: INFLUENZAE A&B ANTIGEN (RAPID) NEGATIVE (NEGATIVE); STREPTOCOCCUS GRP A ANTIGEN NEGATIVE (NEGATIVE)
[2018-10-12 01:13] LABS: BASOPHILS # (AUTO) 0.1 (0.0-0.1); BASOPHILS % 0.5 % (0.0-1.0); EOSINOPHILS # (AUTO) 0.5 (0.0-0.4); EOSINOPHILS % 3.8 % (0.0-6.0); HEMOGLOBIN 7.9 g/dL (12.0-16.0); LYMPHOCYTES # (AUTO) 1.7 (1.0-3.2); LYMPHOCYTES % 12.1 % (18.0-39.1); MEAN CORPUSCULAR HEMOGLOBIN 25.2 pg (28-32); MEAN CORPUSCULAR HGB CONC 31.6 g/dL (31-35); MEAN CORPUSCULAR VOLUME 79.9 fL (81-99); MONOCYTES # (AUTO) 1.1 (0.2-0.8); MONOCYTES % 7.9 % (4.4-11.3); NEUTROPHILS # (AUTO) 10.5 (2.1-6.9); NEUTROPHILS % 75.2 % (38.7-80.0); PLATELET COUNT 567 x10e3/uL (140-360); RED BLOOD COUNT 3.13 x10e6/uL (3.6-5.1); RED CELL DISTRIBUTION WIDTH 15.2 % (11.7-14.4)
--- NOTE | 2018-10-12 01:23 | Diagnostic Imaging Report ---
EXAMINATION: CHEST SINGLE (PORTABLE) INDICATION: Shortness of breath. COMPARISON: 09/28/2018 FINDINGS: AP view TUBES and LINES: None. LUNGS: Lungs are well inflated. Increased prominence of the pulmonary vasculature. Mild bibasilar atelectasis. No evidence of pneumonia. PLEURA: No pleural effusion or pneumothorax. HEART AND MEDIASTINUM: Cardiac size is mildly enlarged. BONES AND SOFT TISSUES: No acute osseous lesion. Soft tissues are unremarkable. UPPER ABDOMEN: No free air under the diaphragm. IMPRESSION: Mild enlargement of the cardiac silhouette with central pulmonary venous congestion. Signed by: DR. Torrey Lee MD on 10/12/2018 1:20 AM
[2018-10-12 01:27] LABS: ALBUMIN 2.6 g/dL (3.5-5.0); ALBUMIN/GLOBULIN RATIO 0.6 (0.8-2.0); CALCIUM 8.7 mg/dL (8.4-10.2); CREATININE, SERUM 2.13 mg/dL (0.57-1.11)
[2018-10-12 01:33] LABS: CREATINE KINASE MB 2.7 ng/mL (0-5.0)
[2018-10-12 02:21] VITALS: BP 174/100
== END 2018-10-12 02:26 | disposition home or self-care (01) ==
LOC: ER 23:12
DX: R06.00 Dyspnea, unspecified (principal); R05 Cough; J20.9 Acute bronchitis, unspecified; I10 Essential (primary) hypertension; E11.9 Type 2 diabetes mellitus without complications; I50.9 Heart failure, unspecified; E78.5 Hyperlipidemia, unspecified; F31.89 Other bipolar disorder
CPT/HCPCS: 36415; 71045; 80053; 82550; 82553; 83518; 83880; 84484; 85025; 87070; 87400; 93005; 99284

== ENCOUNTER 2018-11-23 11:23 | Inpatient (IN) | payer BC ==
[~2018-11-23] VITALS: Ht 160 cm; Wt 125.3 kg
[2018-11-23] MEDS ORDERED: DEXTROSE 50% SYRINGE 50 ML IV PRN ×2 (12:00→20:15)
[2018-11-23] MEDS ORDERED: FUROSEMIDE INJ 10 MG/ML 4 ML VIAL IV ONE (12:00)
[2018-11-23] MEDS ORDERED: ASPIRIN 81 MG CHEW TAB PO ONE (12:00)
[2018-11-23] MEDS ORDERED: SODIUM CHLORIDE FLUSH 10 ML SYR INJ PRN (12:00)
[2018-11-23 12:34] LABS: BASOPHILS # (AUTO) 0.1 (0.0-0.1); BASOPHILS % 0.7 % (0.0-1.0); EOSINOPHILS # (AUTO) 1.2 (0.0-0.4); HEMATOCRIT 31.4 % (34.2-44.1); HEMOGLOBIN 9.8 g/dL (12.0-16.0); LYMPHOCYTES # (AUTO) 1.3 (1.0-3.2); LYMPHOCYTES % 9.7 % (18.0-39.1); MEAN CORPUSCULAR HEMOGLOBIN 25.2 pg (28-32); MEAN CORPUSCULAR HGB CONC 31.2 g/dL (31-35); MEAN CORPUSCULAR VOLUME 80.7 fL (81-99); NEUTROPHILS # (AUTO) 10.1 (2.1-6.9); NEUTROPHILS % 73.1 % (38.7-80.0); PLATELET COUNT 526 x10e3/uL (140-360); RED BLOOD COUNT 3.89 x10e6/uL (3.6-5.1); RED CELL DISTRIBUTION WIDTH 18.6 % (11.7-14.4)
[2018-11-23 12:50] LABS: INR 1.05; PARTIAL THROMBOPLASTIN TIME 42.1 seconds (23.8-35.5); PROTHROMBIN TIME 14.2 seconds (11.9-14.5)
[2018-11-23] MEDS: DOXYCYCLINE HYCLATE TABLET 100 MG TAB PO SCH ×2 (12:55→22:00)
[2018-11-23] MEDS: SPIRONOLACTONE 25 MG TAB PO SCH (12:55)
[2018-11-23 13:04] LABS: ALBUMIN 2.8 g/dL (3.5-5.0); ALBUMIN/GLOBULIN RATIO 0.6 (0.8-2.0); ANION GAP 15.5 mmol/L (8-16); CALCIUM 9.4 mg/dL (8.4-10.2); CREATININE, SERUM 2.16 mg/dL (0.57-1.11); POTASSIUM 3.5 mmol/L (3.5-5.1)
[2018-11-23 13:07] LABS: CLARITY,URINE HAZY (CLEAR); COLOR,URINE YELLOW (YELLOW)
[2018-11-23 13:08] LABS: LEUKOCYTE ESTERASE ,URINE NEGATIVE (NEGATIVE); NITRITE,URINE NEGATIVE (NEGATIVE)
[2018-11-23 13:09] LABS: KETONES,URINE NEGATIVE (NEGATIVE); PROTEIN,URINE DIPSTICK 2+ (NEGATIVE)
[2018-11-23 13:10] LABS: BILIRUBIN,URINE NEGATIVE (NEGATIVE); URINE UROBILINOGEN 0.2 mg/dL (0.2 - 1); WBC,URINE (MAN) 0-5 /HPF (0-5)
[2018-11-23 13:11] LABS: BACTERIA,URINE MODERATE /HPF; EPITHELIAL CELLS,URINE MANY /LPF
[2018-11-23 13:11] LABS: CREATINE KINASE MB 5.3 ng/mL (0-5.0)
[2018-11-23 13:13] LABS: CREATINE KINASE MB 6.8 ng/mL (0-5.0)
--- NOTE | 2018-11-23 14:05 | Diagnostic Imaging Report ---
EXAM: CHEST SINGLE (PORTABLE), AP Portable DATE: 11/23/2018 Time stamp on exam: 1:43 PM INDICATION: CHF COMPARISON: 10/12/2018 FINDINGS: LINES/TUBES: None LUNGS: Moderate pulmonary edema appears worse. PLEURA: Bilateral pleural effusions. HEART AND MEDIASTINUM: Cardiomegaly. BONES AND SOFT TISSUES: No acute findings. IMPRESSION: Cardiomegaly, pulmonary edema and bilateral pleural effusions. Signed by: Dr. Rohit Jones DO on 11/23/2018 2:02 PM
[2018-11-23] MEDS ORDERED: LEVOTHYROXINE75 MCG PO (15:09)
[2018-11-23] MEDS ORDERED: ACETAMINOPHEN 325 MG TAB PO PRN (16:00)
--- NOTE | 2018-11-23 16:09 | NUR ---
RECEIVED TO ROOM AAOX3 NO DISTRESS NOTED, UPDATED ON POC VOICED UNDERSTANDING, RESPIRATIONS EVEN/UNLABORED, DENIES PAIN AT THIS TIME, O2 @ 3L NC, R AC 20G SL NO SS OF INFILTRATION NOTED, ORIENTED TO RM, CALL LIGHT IN REACH WILL CONTINUE OT MONITOR
[2018-11-23 16:21] VITALS: BP 151/65
[2018-11-23 17:12] VITALS: BP 151/65
[2018-11-23] MEDS: ENOXAPARIN SOD INJ 40 MG/0.4 ML SYR SC SCH (18:30)
[2018-11-23] MEDS: FUROSEMIDE INJ 10 MG/ML 4 ML VIAL IV SCH (18:30)
[2018-11-23] MEDS ORDERED: FLUCONAZOLE100 MG PO (19:03)
[2018-11-23 20:00] VITALS: BP 147/70
[2018-11-23] MEDS ORDERED: TRULICITY IM SCH (20:30)
[2018-11-23 21:00] VITALS: BP 147/70
[2018-11-23] MEDS: INSULIN LISPRO 100 UNIT/1 ML 3ML VIAL SQ SCH (21:30)
[2018-11-24] VITALS (8 sets, daily range): BP systolic 119–159; BP diastolic 62–70
--- NOTE | 2018-11-24 04:15 | NUR ---
LAB NOTIFIED THE NURSE THAT BLOOD COLLECTED HEMOLYZED. MAILING MACHINE HELPER MADE AWARE TO RECOLLECT BLOOD.
--- NOTE | 2018-11-24 05:00 | NUR ---
Notify Dr. Oglesby that patient has swollen feet and legs. New order to refer to Dr. Coelho received. notified that patient has seen Dr. Preston for cardiac problems. Consultation for Dr. Coelho cancelled per Dr. Oglesby.
[2018-11-24] MEDS: LEVOTHYROXINE SODIUM 75 MCG TAB PO SCH (05:44)
[2018-11-24] MEDS ORDERED: ZOLPIDEM TARTRATE 10 MG TAB PO PRN (05:45)
[2018-11-24 06:01] LABS: BASOPHILS # (AUTO) 0.1 (0.0-0.1); BASOPHILS % 0.6 % (0.0-1.0); EOSINOPHILS # (AUTO) 0.9 (0.0-0.4); EOSINOPHILS % 8.7 % (0.0-6.0); HEMATOCRIT 30.1 % (34.2-44.1); HEMOGLOBIN 9.3 g/dL (12.0-16.0); LYMPHOCYTES # (AUTO) 1.1 (1.0-3.2); MEAN CORPUSCULAR HEMOGLOBIN 25.1 pg (28-32); MEAN CORPUSCULAR HGB CONC 30.9 g/dL (31-35); MEAN CORPUSCULAR VOLUME 81.1 fL (81-99); MONOCYTES # (AUTO) 0.9 (0.2-0.8); MONOCYTES % 8.2 % (4.4-11.3); NEUTROPHILS # (AUTO) 7.4 (2.1-6.9); NEUTROPHILS % 71.1 % (38.7-80.0); PLATELET COUNT 469 x10e3/uL (140-360); RED BLOOD COUNT 3.71 x10e6/uL (3.6-5.1); RED CELL DISTRIBUTION WIDTH 18.4 % (11.7-14.4)
[2018-11-24 06:31] LABS: CREATINE KINASE MB 3.7 ng/mL (0-5.0)
[2018-11-24 06:56] LABS: ANION GAP 16.6 mmol/L (8-16); CALCIUM 9.2 mg/dL (8.4-10.2); CREATININE, SERUM 2.12 mg/dL (0.57-1.11); POTASSIUM 3.6 mmol/L (3.5-5.1)
--- NOTE | 2018-11-24 07:07 | Diagnostic Imaging Report ---
EXAMINATION: CHEST SINGLE (PORTABLE) INDICATION: CHF COMPARISON: 11/23/2018 FINDINGS: AP view TUBES and LINES: None. LUNGS: Mildly decreased pulmonary edema. PLEURA: Mildly decreased bilateral pleural effusions. No pneumothorax HEART AND MEDIASTINUM: Stable cardiomegaly. BONES AND SOFT TISSUES: No acute findings. UPPER ABDOMEN: No free air under the diaphragm. IMPRESSION: Mildly decreased pulmonary edema and bilateral pleural effusions. Signed by: DR. Torrey Lee MD on 11/24/2018 7:03 AM
--- NOTE | 2018-11-24 07:36 | NUR ---
Received patient and walking rounds complete. Patient awake sitting in chair no signs of distress. Call light in reach, will continue to monitor.
--- NOTE | 2018-11-24 08:50 | NUR ---
Patient A/O X3, SOB on 3LNC. Skin intact, small scab on umbilicus, bowel sounds active. 2+ pitting edema in BLE. Left hand 20 gauge IV. Tele #[id number] SR. Patient is ambulatory with standby assist, uses walker. Call light in reach, will continue to monitor.
[2018-11-24] MEDS ORDERED: FUROSEMIDE 40 MG TAB PO SCH (09:00)
[2018-11-24] MEDS: GLIMEPIRIDE 2 MG TAB PO SCH (09:55)
[2018-11-24] MEDS: DOXYCYCLINE HYCLATE TABLET 100 MG TAB PO SCH ×2 (09:56→21:00)
[2018-11-24] MEDS: SPIRONOLACTONE 25 MG TAB PO SCH (09:56)
[2018-11-24] MEDS: INSULIN LISPRO 100 UNIT/1 ML 3ML VIAL SQ SCH ×4 (09:56→21:02)
[2018-11-24] MEDS: FLUCONAZOLE 100 MG TAB PO SCH (09:56)
[2018-11-24] MEDS: CARVEDILOL 12.5 MG TAB PO SCH ×2 (09:56→17:35)
[2018-11-24] MEDS: SITAGLIPTIN 100 MG TAB PO SCH (09:56)
[2018-11-24] MEDS: CHOLECALCIFEROL 1,000 UNIT TAB PO SCH (09:56)
[2018-11-24] MEDS: NIFEDIPINE CR 30 MG TAB PO SCH (09:56)
[2018-11-24] MEDS: FUROSEMIDE INJ 10 MG/ML 4 ML VIAL IV SCH ×2 (09:56→17:34)
[2018-11-24 10:18] LABS: CHOL/HDL RATIO 3.8 (3.0-3.6)
[2018-11-24 10:44] LABS: THYROID STIMULATING HORMONE 4.136 uIU/mL (0.350-4.940)
[2018-11-24] MEDS ORDERED: FUROSEMIDE INJ 10 MG/ML 4 ML VIAL IV NR (11:30)
--- NOTE | 2018-11-24 14:29 | NUR ---
Patient stated she could not go to the bathroom, paged Dr. Oglesby for order for stool softener.
[2018-11-24] MEDS ORDERED: DOCUSATE SODIUM 100 MG CAP PO ONE (14:30)
[2018-11-24] MEDS: ENOXAPARIN SOD INJ 40 MG/0.4 ML SYR SC SCH (17:35)
[2018-11-24] MEDS ORDERED: METOLAZONE 5 MG TAB PO NR (17:45)
--- NOTE | 2018-11-24 18:20 | Consultation ---
DATE OF CONSULTATION: 11/24/2018 REASON FOR CONSULTATION: CHF. CHIEF COMPLAINT: Shortness of breath and over 30-pound weight gain in recent weeks. HISTORY OF PRESENT ILLNESS: This is a 53-year-old female with history of nonischemic cardiomyopathy and a left heart catheterization done in February [address] Carrasquillo showing basically luminal irregularities, chronic kidney disease stage 3 to 4, COPD, hyperlipidemia, hypertension, diabetes, and severe anemia. The patient was recently seen in September of this year at the office to establish cardiac relationship, had an echo done, which showed an EF of about 40% at that time. The patient was on heart-failure therapy, beta-blockers, Lasix, and no EVI or ARB secondary to chronic kidney disease. However, in the past couple of weeks the patient reports that she has been gaining more weight. Also reported greater than 30 pounds of weight gain in the past couple of weeks. She reports taking her medications as directed and has increased her Lasix therapy without much benefit. However, the patient presents to [facility]. Notable pulmonary congestion on x-ray, started on Lasix IV. Cardiology was consulted to evaluate the patient. The patient was seen in room, reports she is breathing slightly better; however, still short of breath. Denies any chest pain. Positive for orthopnea, PND, and positive for lower extremity edema. HOME MEDICATIONS: Include glimepiride 4 mg once a day, nifedipine 30 mg once a day, Januvia 100 mg once a day, Lasix 80 mg twice a day, levothyroxine 75 mcg once a day, and Coreg 6.25 mg twice a day. PAST MEDICAL HISTORY: Nonischemic cardiomyopathy, diabetes, hypertension, chronic kidney disease, and anemia. PAST SURGICAL HISTORY: She had left heart catheterization in March 2017 with normal coronaries. Right foot surgery in 2016. FAMILY HISTORY: Mother is alive at age of 78, apparently with history of diabetes and glaucoma. Father, unknown. SOCIAL HISTORY: She is . She is retired caregiver. Denies any alcohol or tobacco use. ALLERGIES: ACETAMINOPHEN, SULFA, LISINOPRIL. REVIEW OF SYSTEMS: GENERAL: Positive weight gain about 30 pounds in recent weeks. Denies any weakness, fevers, chills, or night sweats. SKIN: No rashes or bruises. HEENT: Denies any vision changes, blurry vision, double vision, earaches, any epistaxis, any sore throat, or swollen neck. CARDIAC: Denies any chest pain. Positive for dyspnea on exertion. Positive for orthopnea, PND, and lower extremity edema. RESPIRATORY: Positive for shortness of breath. Denies any hemoptysis. URINARY: Positive for frequency, urgency, and hematuria. Denies any dysuria. VASCULAR: Positive for lower extremity edema. Denies any claudication. MUSCULOSKELETAL: Denies any muscle weakness. Positive for generalized joint pains. NEUROLOGIC: Denies any numbness, tingling, tremors, weakness, paralysis, or blackouts. HEMATOLOGIC: Positive for anemia. Denies any bleeding. ENDOCRINE: Denies any heat or cold intolerance, any polyuria, or polydipsia. PHYSICAL EXAMINATION: VITAL SIGNS: Temperature 96.7, pulse 97, respiratory rate 16, blood pressure 159/70, and pulse ox 96% on 3 L nasal cannula. Height 6 feet 3 inches, weight 276 pounds, and BMI 48. GENERAL: Appears stated age, in mild distress, reliable informant. SKIN: No rashes. No bruises. HEENT: Normocephalic. Pupils are equal and reactive. Extraocular movements are intact. Oral mucosa pink. NECK: Trachea midline. No carotid bruit noted. No JVD noted; however, the patient is obese. HEART: Regular rate and rhythm. No murmurs. No clicks. LUNGS: Bilateral breath sounds with crackles. ABDOMEN: Soft, nontender, and nondistended. No organomegaly noted. MUSCULOSKELETAL: Good muscle strength throughout. VASCULAR: +2 radial pulses bilaterally, +1 DP/PT pulses bilaterally, +1 to 2 lower extremity edema. NEUROLOGIC: Cranial nerves II through XII are intact. LABORATORY DATA: White count 13, hemoglobin 9.8, hematocrit 31, and platelets 526. Sodium 137, potassium 3.6, bicarb 102, BUN 40, creatinine 2.1, and BNP 225. Chest x-ray showing cardiomegaly, pulmonary edema, and bilateral pleural effusions. EKG, sinus rhythm. Heart rate 97. ASSESSMENT: 1. Acute on chronic congestive heart failure. 2. Nonischemic cardiomyopathy. 3. Chronic kidney disease, stage 3 to 4. 4. Hypertension. 5. Diabetes, uncontrolled. 6. Hypothyroidism. 7. Anemia. PLAN: 1. The patient presents with volume overload for the last couple of weeks and acute on chronic CHF. The patient has been started on diuretic therapy. We will adjust Lasix therapy. Continue heart failure therapy, Lasix and beta-jaylin. No EVI or ARB secondary to chronic kidney disease. 2. We will discuss with the patient about fluid restrictions and salt intake. 3. We will continue to monitor the patient and adjust cardiac therapy as clinical course dictates. 4. We will obtain labs in a.m. Thank you very much for this consult. We will follow the patient's progression. Seen and examined Agree with note Dictated by Jerzy Ceballos NP Heather Preston MD DC/OCDY /[id number] MTDConcepción
[2018-11-25] VITALS (8 sets, daily range): BP systolic 107–132; BP diastolic 51–62
[2018-11-25] MEDS: LEVOTHYROXINE SODIUM 75 MCG TAB PO SCH (06:35)
[2018-11-25 06:36] LABS: ALBUMIN 2.2 g/dL (3.5-5.0); ALBUMIN/GLOBULIN RATIO 0.6 (0.8-2.0); ANION GAP 13.8 mmol/L (8-16); CALCIUM 8.6 mg/dL (8.4-10.2); CREATININE, SERUM 2.39 mg/dL (0.57-1.11); POTASSIUM 3.8 mmol/L (3.5-5.1)
--- NOTE | 2018-11-25 07:07 | NUR ---
REPORT GIVEN TO ONCOMING NURSE,WALKING ROUNDS MADE.PT RESTING IN BED WITH NO S/S OF DISTRESS.
[2018-11-25] MEDS: INSULIN LISPRO 100 UNIT/1 ML 3ML VIAL SQ SCH ×4 (07:30→21:00)
--- NOTE | 2018-11-25 07:37 | NUR ---
Received patient and walking rounds complete. Patient awake sitting up in bed at this time, no signs of distress. Call light in reach, will continue to monitor.
[2018-11-25] MEDS: NIFEDIPINE CR 30 MG TAB PO SCH (09:43)
[2018-11-25] MEDS: FUROSEMIDE INJ 10 MG/ML 4 ML VIAL IV SCH ×2 (09:43→16:25)
[2018-11-25] MEDS: CHOLECALCIFEROL 1,000 UNIT TAB PO SCH (09:43)
[2018-11-25] MEDS: DOXYCYCLINE HYCLATE TABLET 100 MG TAB PO SCH ×2 (09:43→21:15)
[2018-11-25] MEDS: SITAGLIPTIN 100 MG TAB PO SCH (09:43)
[2018-11-25] MEDS: GLIMEPIRIDE 2 MG TAB PO SCH (09:43)
[2018-11-25] MEDS: POLYETHYLENE GLYCOL 3350 17 GM PACK PO SCH ×2 (09:43→16:25)
[2018-11-25] MEDS: FLUCONAZOLE 100 MG TAB PO SCH (09:43)
[2018-11-25] MEDS: CARVEDILOL 12.5 MG TAB PO SCH ×2 (09:43→16:25)
--- NOTE | 2018-11-25 10:59 | Progress Note ---
DATE: SUBJECTIVE: The patient is here for: 1. Acute on chronic congestive heart failure, systolic. 2. Acute on chronic renal insufficiency. 3. Leukocytosis. 4. Abdominal pain. The patient is currently feeling better. No orthopnea. No PND. Positive for shortness of breath on exertion. Lying down flat. MEDICATIONS: The patient's medications include insulin, carvedilol, Lovenox 40 mg, and Lasix 80 mg twice a day. She is on Januvia, nifedipine, cholecalciferol, glimepiride, and levothyroxine. Recently started on MiraLAX, Zolpidem, acetaminophen, and sodium chloride flushes. The patient has complained of constipation. OBJECTIVE: VITAL SIGNS: Temperature is 96.2, pulse of 85, respirations of 18, blood pressure is 112/59, and pulse oximetry of 98% on 3 L of cannula. HEENT: Normocephalic and atraumatic. Pupils are reactive to light and accommodation. CVS: S1 normal. Regular rate and rhythm. The patient has no S3 or S4. RESPIRATORY: Positive for crackles at the lower lung bases. ABDOMEN: Tender in the suprapubic area. VASCULAR: Pulses are good. NEUROLOGIC: Normal. LABORATORY DATA: The patient's white count was yesterday, hemoglobin of 9.3, and hematocrit of 30.1. Chemistries from yesterday show a BUN of 40 and creatinine of 2.12. Pending today's lab. Coags were normal. Urine showed moderate bacteria. Microbiology, no data available at this time. ASSESSMENT: 1. Acute on chronic congestive heart failure. The plan is to continue with diuresis. The patient is not on EVI inhibitor secondary to renal failure and also hyperkalemia. Lasix therapy is ongoing. Also pushes should be on fluid restrictions and decrease salt intake. Continue to monitor her labs. Urine culture will be sent. 2. Diabetes mellitus. We will continue monitoring her blood sugars. 3. Hypertension, controlled. 4. Anemia of chronic kidney disease. We will continue to monitor the patient. 5. Hypothyroidism. Continue with thyroid medication. 6. Further recommendation and clinical course, the patient will be also started on MiraLAX for constipation. MD TOMI Cade/MODL /[id number]
--- NOTE | 2018-11-25 11:16 | NUR ---
Patient sitting in recliner at this time, no signs of distress. 3+ pitting edema in BLE, legs elevated. Shortness of breath when ambulating, patient on 3LNC. Call light in reach, will continue to monitor.
[2018-11-25] MEDS: ENOXAPARIN SOD INJ 40 MG/0.4 ML SYR SC SCH (16:25)
[2018-11-26] VITALS (8 sets, daily range): BP systolic 111–139; BP diastolic 58–70
[2018-11-26] MEDS: LEVOTHYROXINE SODIUM 75 MCG TAB PO SCH (06:05)
[2018-11-26 06:18] LABS: ALBUMIN 2.4 g/dL (3.5-5.0); ALBUMIN/GLOBULIN RATIO 0.6 (0.8-2.0); ANION GAP 12.8 mmol/L (8-16); CALCIUM 8.9 mg/dL (8.4-10.2); CREATININE, SERUM 2.6 mg/dL (0.57-1.11); POTASSIUM 3.8 mmol/L (3.5-5.1)
--- NOTE | 2018-11-26 07:03 | NUR ---
REPORT GIVEN TO ONCOMING NURSE,WALKING ROUNDS MADE.PT SITTING UP IN RECLINER CHAIR WITH NO S/S OF DISTRESS.
--- NOTE | 2018-11-26 07:17 | NUR ---
Received patient and walking rounds complete. Patient sitting up in chair at this time, no signs of distress. Call light in reach, will continue to monitor.
[2018-11-26] MEDS: POLYETHYLENE GLYCOL 3350 17 GM PACK PO SCH ×2 (09:00→17:00)
[2018-11-26] MEDS: INSULIN LISPRO 100 UNIT/1 ML 3ML VIAL SQ SCH ×4 (09:04→20:30)
[2018-11-26] MEDS: CARVEDILOL 12.5 MG TAB PO SCH ×2 (09:19→17:51)
[2018-11-26] MEDS: FUROSEMIDE INJ 10 MG/ML 4 ML VIAL IV SCH ×2 (09:19→20:30)
[2018-11-26] MEDS: GLIMEPIRIDE 2 MG TAB PO SCH (09:19)
[2018-11-26] MEDS: DOXYCYCLINE HYCLATE TABLET 100 MG TAB PO SCH ×2 (09:20→20:30)
[2018-11-26] MEDS: FLUCONAZOLE 100 MG TAB PO SCH (09:20)
[2018-11-26] MEDS: NIFEDIPINE CR 30 MG TAB PO SCH (09:20)
[2018-11-26] MEDS: CHOLECALCIFEROL 1,000 UNIT TAB PO SCH (09:20)
[2018-11-26] MEDS: SITAGLIPTIN 100 MG TAB PO SCH (09:20)
--- NOTE | 2018-11-26 09:43 | NUR ---
PATIENT STATED "I FEEL LIKE IM CRASHING," VITAL SIGNS CHECKED AND PATIENT IS STABLE AT THIS TIME. BLOOD SUGAR- 225. BLOOD PRESSURE- 148/66. HR- 85 O2 SAT- 93% 2LNC, BUMPED UP TO 3LNC. NO COMPLAINT OF PAIN. WILL CONTINUE TO MONITOR.
[2018-11-26] MEDS ORDERED: METOLAZONE 5 MG TAB PO NR (12:15)
[2018-11-26] MEDS: ENOXAPARIN SOD INJ 40 MG/0.4 ML SYR SC SCH (17:33)
[2018-11-27] VITALS (7 sets, daily range): BP systolic 110–136; BP diastolic 56–90
[2018-11-27] MEDS: LEVOTHYROXINE SODIUM 75 MCG TAB PO SCH (05:51)
--- NOTE | 2018-11-27 07:27 | NUR ---
REPORT GIVEN TO ONCOMING NURSE,WALKING ROUNDS DONE.PT SITTING UP IN CHAIR WITH NO S/S OF DISTRESS.
[2018-11-27 07:43] LABS: ALBUMIN 2.4 g/dL (3.5-5.0); ALBUMIN/GLOBULIN RATIO 0.7 (0.8-2.0); ANION GAP 16.5 mmol/L (8-16); CALCIUM 8.9 mg/dL (8.4-10.2); CREATININE, SERUM 2.87 mg/dL (0.57-1.11); POTASSIUM 4.5 mmol/L (3.5-5.1)
[2018-11-27] MEDS: INSULIN LISPRO 100 UNIT/1 ML 3ML VIAL SQ SCH ×4 (08:30→20:44)
[2018-11-27] MEDS: POLYETHYLENE GLYCOL 3350 17 GM PACK PO SCH ×2 (09:00→17:00)
[2018-11-27] MEDS: GLIMEPIRIDE 2 MG TAB PO SCH (09:00)
[2018-11-27] MEDS: DOXYCYCLINE HYCLATE TABLET 100 MG TAB PO SCH ×2 (10:00→20:42)
[2018-11-27] MEDS: FUROSEMIDE INJ 10 MG/ML 4 ML VIAL IV SCH ×2 (10:00→20:42)
[2018-11-27] MEDS: CARVEDILOL 12.5 MG TAB PO SCH ×2 (10:00→17:43)
[2018-11-27] MEDS: FLUCONAZOLE 100 MG TAB PO SCH (10:00)
[2018-11-27] MEDS: SITAGLIPTIN 100 MG TAB PO SCH (10:00)
[2018-11-27] MEDS: NIFEDIPINE CR 30 MG TAB PO SCH (10:00)
[2018-11-27] MEDS: CHOLECALCIFEROL 1,000 UNIT TAB PO SCH (10:00)
--- NOTE | 2018-11-27 12:30 | NUR ---
MD QUEVEDO INTO SEE PT, DISCUSSED POC, MADE AWARE OF PT C/O INTERMITTENT CHEST PAIN -10/29
[2018-11-27] MEDS: ENOXAPARIN SOD INJ 40 MG/0.4 ML SYR SC SCH (17:44)
--- NOTE | 2018-11-27 18:05 | NUR ---
SITTING IN BS CHAIR, TOLERATING PO, VOICES NO NEEDS AT THIS TIME, CALL LIGHT WITHIN REACH
[2018-11-27] MEDS: HYDRALAZINE HCL 25 MG TAB PO SCH (20:42)
[2018-11-28] VITALS (7 sets, daily range): BP systolic 105–134; BP diastolic 55–64
--- NOTE | 2018-11-28 02:19 | NUR ---
REPORT AND TRANSFER OF CARE GIVEN TO NURSE NAYANA RN.
[2018-11-28] MEDS ORDERED: ACETAMINOPHEN 325 MG TAB PO PRN (04:15)
[2018-11-28] MEDS: LEVOTHYROXINE SODIUM 75 MCG TAB PO SCH (05:38)
[2018-11-28 06:23] LABS: ALBUMIN 2.5 g/dL (3.5-5.0); ALBUMIN/GLOBULIN RATIO 0.7 (0.8-2.0); ANION GAP 17.6 mmol/L (8-16); CALCIUM 8.3 mg/dL (8.4-10.2); CREATININE, SERUM 3.24 mg/dL (0.57-1.11); POTASSIUM 4.6 mmol/L (3.5-5.1)
[2018-11-28] MEDS: INSULIN LISPRO 100 UNIT/1 ML 3ML VIAL SQ SCH ×4 (07:30→22:00)
--- NOTE | 2018-11-28 07:33 | NUR ---
PATIENT ASSISTED TO THE RESTROOM AND BACK TO RECLINING CHAIR. VOIDED SMALL AMOUNT OF YELLOW URINE, 24 HRS URINE COLLECTION IN PROGRESS. ALL, PERSONAL ITEMS CLOSE TO PATIENT. CALL LIGHT AT REACH.
[2018-11-28] MEDS: GLIMEPIRIDE 2 MG TAB PO SCH (08:02)
[2018-11-28] MEDS: HYDRALAZINE HCL 25 MG TAB PO SCH ×3 (09:22→20:54)
[2018-11-28] MEDS: FUROSEMIDE INJ 10 MG/ML 4 ML VIAL IV SCH (09:22)
[2018-11-28] MEDS: FLUCONAZOLE 100 MG TAB PO SCH (09:23)
[2018-11-28] MEDS: CHOLECALCIFEROL 1,000 UNIT TAB PO SCH (09:23)
[2018-11-28] MEDS: POLYETHYLENE GLYCOL 3350 17 GM PACK PO SCH ×2 (09:23→17:00)
[2018-11-28] MEDS: DOXYCYCLINE HYCLATE TABLET 100 MG TAB PO SCH ×2 (09:23→20:54)
[2018-11-28] MEDS: CARVEDILOL 12.5 MG TAB PO SCH ×2 (09:23→17:00)
[2018-11-28] MEDS: SITAGLIPTIN 100 MG TAB PO SCH (09:23)
--- NOTE | 2018-11-28 12:07 | NUR ---
PATIENT ASSISTED TO THE RESTROOM AND BACK TO CHAIR. CALL LIGHT AT REACH.
--- NOTE | 2018-11-28 15:36 | Diagnostic Imaging Report ---
EXAMINATION: CHEST SINGLE (NOT PORTABLE) INDICATION: CKD COMPARISON: Chest radiograph 11/24/2018. FINDINGS: AP view TUBES and LINES: None. LUNGS: Mild bilateral perihilar and interstitial opacities. No new consolidation. PLEURA: Small bilateral pleural effusions. No evidence of pneumothorax. HEART AND MEDIASTINUM: Stable cardiomegaly. BONES AND SOFT TISSUES: No acute findings. UPPER ABDOMEN: No free air under the diaphragm. IMPRESSION: Cardiomegaly with similar appearance of mild pulmonary interstitial edema and small bilateral pleural effusions. Signed by: Dr. Shukri Arriaga MD on 11/28/2018 3:33 PM
--- NOTE | 2018-11-28 16:04 | NUR ---
24 HOURS URINE COLLECTION COMPLETED AT 1515. URINE SENT TO THE LAB.
[2018-11-28] MEDS: ENOXAPARIN SOD INJ 40 MG/0.4 ML SYR SC SCH (17:13)
[2018-11-28 18:02] LABS: CREATININE,URINE RANDOM 76.83 mg/dL (47-110)
[2018-11-28 18:04] LABS: TOTAL PROTEIN, URINE 70.5 mg/dL (1-14)
--- NOTE | 2018-11-28 19:11 | NUR ---
BEDSIDE REPORT GIVEN TO ON COMING NURSE.
--- NOTE | 2018-11-28 20:00 | NUR ---
pt received. pt assessed. no ss of distress noted. no co pain at time. tele in place. 02 nc noted. will cont to follow poc. call mullins within reach.
[2018-11-28] MEDS: METOLAZONE 5 MG TAB PO SCH (20:54)
--- NOTE | 2018-11-28 22:00 | NUR ---
pt showered. linen changed. no ss of distress noted. call mullins within reach.
[2018-11-28] MEDS: BUMETANIDE INJ 0.25MG/ML 4ML VIAL IV SCH (22:42)
[2018-11-29] VITALS (9 sets, daily range): BP systolic 124–153; BP diastolic 60–81
--- NOTE | 2018-11-29 | NUR ---
pt uncomfortable at time. repositioned for comfort. call mullins within reach.
--- NOTE | 2018-11-29 01:00 | NUR ---
elsa rechecked 97.1. no distress noted. call mullins within reach. Addendum: 11/29/18 at 0453 by Meghan Henderson RN please omit note.
--- NOTE | 2018-11-29 01:44 | Consultation ---
DATE OF CONSULTATION: 11/28/2018 Consultation Note HISTORY OF PRESENT ILLNESS: Ms. Toya Marroquin is known to our Nephrology Service, follows up with Dr. Mendosa for her chronic kidney disease. This is a 53-year-old white female with a longstanding history of diabetes, hypertension, diabetic retinopathy, neuropathy, and diabetic kidney disease. Renal consulted for management of acute kidney injury and worsening kidney function as well as fluid overload. She is currently lying supine, appears relatively depressed, started crying when she started talking to me. She was concerned about her health. She denies chest pains or any orthopnea. She does have dyspnea on exertion. Denies any fever. Admits to fatigue. ALLERGIES: LISINOPRIL, SULFA, AND PENICILLIN. CURRENT MEDICATIONS: Carvedilol 6.25 b.i.d., insulin lispro, hydralazine 25 p.o. t.i.d., levothyroxine 75 mcg daily, Tylenol p.r.n., sitagliptin 100 mg daily, fluconazole 100 mg daily, glimepiride 8 mg p.o. daily, and furosemide 40 mg q.12. FAMILY HISTORY: Significant for diabetes. LABORATORY DATA: Current labs; white count 13.7, down to 10.37 with a hemoglobin of 9.3. She has chemistry, which shows sodium of 132, potassium 4.6, and creatinine 3.2. BNP 311. Total protein 6.3. Globulin 3.8. Urinalysis done earlier shows specific gravity of 1.030, dip stick positive, protein 2+, 11-20 rbc, and 0-5 wbc. A 24-hour urine collection shows creatinine clearance of 16 with a proteinuria. PHYSICAL EXAMINATION: GENERAL: Awake, alert, sitting up, in no apparent distress. VITAL SIGNS: Blood pressure 119/57, pulse rate 80, afebrile, respiratory rate 19, and oxygen saturation 93% on room air. HEAD AND NECK: Cornea clear. Oral mucosa moist. LUNGS: Bibasilar rales. HEART: S1 and S2 audible. ABDOMEN: Otherwise, soft and nontender. EXTREMITIES: Lower extremity examination shows 2+ lower extremity edema, extending up to the thighs. IMPRESSION AND PLAN: 1. Congestive heart failure, significant third spacing edema. I will discontinue existing Lasix, has less than 1 g proteinuria. We will place on 2 mg Bumex IV q.8. 2. Chronic kidney disease, 4. Currently, no acute indications for dialysis. We will obtain clinic records, place knee high MIKE hose stocking, and start Zaroxolyn. I will give her a 1 time dose. She would benefit from either aldactone or Zaroxolyn, but here her sodium is low, which is multifactorial, henceforth I cannot use it on a regular basis. I will obtain kidney ultrasound, fluid restriction and salt restriction. Further recommendations to follow. MD JOSE Anderson/CODY /[id number]
[2018-11-29] MEDS ORDERED: ALBUTEROL SULF 0.083% NEB SOLN 3 ML NEB NEB STA (03:16)
--- NOTE | 2018-11-29 03:17 | NUR ---
assisted pt up to bathroom and back to bed. temp rechecked rectally 94.7. warm blankets placed on pt. pt stated sob. 02 2 lit nc 85%. increased 02 to 5 lit. after o2 increase 95%. resp 22. spoke to dr avina new orders received. resp therapist notified of new orders.
--- NOTE | 2018-11-29 03:49 | Diagnostic Imaging Report ---
EXAMINATION: CHEST SINGLE (PORTABLE) INDICATION: Shortness of breath. COMPARISON: Chest radiograph 11/28/2018. FINDINGS: TUBES and LINES: None. LUNGS: Mild bilateral pulmonary venous congestion and interstitial edema again observed, with ossific unchanged. PLEURA: Small bilateral pleural effusions right greater then left. No evidence of pneumothorax. HEART AND MEDIASTINUM: Stable enlarged cardiac silhouette. BONES AND SOFT TISSUES: No acute findings. UPPER ABDOMEN: No free air under the diaphragm. IMPRESSION: No significant interval change. Bilateral pulmonary venous congestion and interstitial edema. Signed by: Dr. Nate Mascorro M.D. on 11/29/2018 3:46 AM
--- NOTE | 2018-11-29 04:30 | NUR ---
dr kailyn plascencia. made aware temp 93.7 rectally. stated pt warm to touch. pt orientated x3. stated to make pt comfortable and apply warm blankets.
[2018-11-29] MEDS: BUMETANIDE INJ 0.25MG/ML 4ML VIAL IV SCH ×3 (06:03→22:13)
[2018-11-29] MEDS: LEVOTHYROXINE SODIUM 75 MCG TAB PO SCH (06:03)
--- NOTE | 2018-11-29 06:10 | NUR ---
pt refused rectal temp at time. temp rechecked axillary 95. no ss of distress noted. call mullins within reach.
[2018-11-29 06:12] LABS: BASOPHILS # (AUTO) 0.1 (0.0-0.1); BASOPHILS % 0.5 % (0.0-1.0); EOSINOPHILS # (AUTO) 0.7 (0.0-0.4); EOSINOPHILS % 8.1 % (0.0-6.0); HEMATOCRIT 25.6 % (34.2-44.1); HEMOGLOBIN 8.2 g/dL (12.0-16.0); LYMPHOCYTES % 11.2 % (18.0-39.1); MEAN CORPUSCULAR HEMOGLOBIN 25.2 pg (28-32); MEAN CORPUSCULAR VOLUME 78.5 fL (81-99); MONOCYTES # (AUTO) 0.8 (0.2-0.8); NEUTROPHILS # (AUTO) 6.4 (2.1-6.9); NEUTROPHILS % 70.5 % (38.7-80.0); PLATELET COUNT 349 x10e3/uL (140-360); RED BLOOD COUNT 3.26 x10e6/uL (3.6-5.1); RED CELL DISTRIBUTION WIDTH 17.8 % (11.7-14.4)
[2018-11-29 06:25] LABS: ALBUMIN 2.5 g/dL (3.5-5.0); ALBUMIN/GLOBULIN RATIO 0.7 (0.8-2.0); ANION GAP 15.3 mmol/L (8-16); CALCIUM 8.7 mg/dL (8.4-10.2); CREATININE, SERUM 2.91 mg/dL (0.57-1.11); POTASSIUM 4.3 mmol/L (3.5-5.1)
[2018-11-29] MEDS: INSULIN LISPRO 100 UNIT/1 ML 3ML VIAL SQ SCH ×4 (07:30→20:56)
--- NOTE | 2018-11-29 07:36 | NUR ---
Received patient awake sitting up in chair, no signs of distress at this time. Call light in reach, will continue to monitor.
[2018-11-29] MEDS: POLYETHYLENE GLYCOL 3350 17 GM PACK PO SCH ×2 (09:00→17:00)
[2018-11-29] MEDS: GLIMEPIRIDE 2 MG TAB PO SCH (09:20)
[2018-11-29] MEDS: CHOLECALCIFEROL 1,000 UNIT TAB PO SCH (09:21)
[2018-11-29] MEDS: METOLAZONE 5 MG TAB PO SCH (09:21)
[2018-11-29] MEDS: HYDRALAZINE HCL 25 MG TAB PO SCH ×3 (09:21→20:56)
[2018-11-29] MEDS: CARVEDILOL 12.5 MG TAB PO SCH ×2 (09:21→17:21)
[2018-11-29] MEDS: FLUCONAZOLE 100 MG TAB PO SCH (09:21)
[2018-11-29] MEDS: DOXYCYCLINE HYCLATE TABLET 100 MG TAB PO SCH ×2 (09:21→20:56)
[2018-11-29] MEDS: SITAGLIPTIN 100 MG TAB PO SCH (09:21)
[2018-11-29] MEDS: ALBUTEROL SULF 0.083% NEB SOLN 3 ML NEB NEB PRN ×3 (09:47→21:00)
--- NOTE | 2018-11-29 10:00 | NUR ---
Patient A/O X3, SOB on 5LNC. Bowel sounds active, skin intact, 2+ pitting edema in BLE. Jose hose bilaterally. Patient is ambulatory with standby assist. Tele #[id number] SR. Call light in reach, will continue to monitor.
--- NOTE | 2018-11-29 12:22 | Diagnostic Imaging Report ---
EXAM: US RENAL RETROPERITONEAL COMP DATE: 11/29/2018 12:00 AM INDICATION: CHF, fatigue, NANCIE COMPARISON: CT abdomen/pelvis, 12/11/2017 FINDINGS: Grayscale and color flow Doppler ultrasound of the kidneys and urinary bladder performed. Right kidney: 10.1 x 5.6 x 5.2 cm. Normal cortical echogenicity. Cortical thickness 2.0 cm. No hydronephrosis or contour deforming mass. Left kidney: 11.0 x 5.7 x 5.1 cm. Cortical thickness 1.8 cm. Cortical echogenicity normal. No hydronephrosis or contour deforming mass. Urinary bladder: Unremarkable appearance. Bilateral ureteral jets are identified. Bladder volume 147 cc IMPRESSION: 1. No hydronephrosis or contour deforming renal mass. 2. Unremarkable appearance of the urinary bladder. Signed by: Dr. Charli Lee M.D. on 11/29/2018 12:19 PM
[2018-11-29] MEDS ORDERED: METOLAZONE 5 MG TAB PO STA (16:19)
[2018-11-29] MEDS: ENOXAPARIN SOD INJ 40 MG/0.4 ML SYR SC SCH (17:21)
--- NOTE | 2018-11-29 18:56 | NUR ---
Nutrition Screen Note RD Recommendation for Physician: -Continue ADA diet as ordered Plan of Care: RD following, monitoring for tolerance and adequacy Nutrition reason for involvement: Nutrition Risk Trigger- LOS Primary Diagnose(s): CHF, CKD PMH: CKD, COPD, HLD, HTN, DM, anemia Ht: 63in Wt: 276.31lb BMI: 48.9kg/m2 IBW: 115lb RD Assessment: (11/29) 53yo F, who was admitted for SOB and 30lbs weight gain. Chart reviewed. Labs and meds reviewed. Visited pt in room who denied decrease in appetite SERVICE ORDER CLERK. Pt denied chewing/swallowing problems and nausea/vomiting. Pt ate ~75-100% of her meals since admission. Appetite has been good. Will cont to monitor. Please consult as needed. Current Diet: ADA diet Malnutrition Evaluation (11/29) The patient does not meet criteria for a specified degree of malnutrition at this time. Will re-evaluate at follow-up as appropriate. Diet Education Needs Assessment: Diet education not indicated. Nutrition Care Level: low Signed: Mary Feliciano MS, RD, LD
[2018-11-30] VITALS (7 sets, daily range): BP systolic 132–163; BP diastolic 59–74
[2018-11-30] MEDS: ALBUTEROL SULF 0.083% NEB SOLN 3 ML NEB NEB PRN ×4 (02:40→20:55)
--- NOTE | 2018-11-30 03:58 | NUR ---
PT AAOX3 C/O FEELING COLD AND CLAMMY. CHECKED BLOOD GLUCOSE READING 45. ORANGE JUICE GIVEN. RECHECKED BLOOD GLUCOSE NOW READING 100. PT VOICED "I FEEL BETTER".
--- NOTE | 2018-11-30 04:33 | NUR ---
DR BONDS ROUNDING AT THIS TIME. INFORMED OF PT TEMP READING 93.1 ORALLY, PT REFUSED RECTAL TEMP. SAID PT SKIN IS WARM TO TOUCH AND HAS NO COMPLAINTS. NO NEW ORDER RCV. PT COVERED WITH WARM BLANKETS. WILL RECHECK TEMP.
[2018-11-30] MEDS: BUMETANIDE INJ 0.25MG/ML 4ML VIAL IV SCH ×2 (06:00→14:10)
[2018-11-30] MEDS: LEVOTHYROXINE SODIUM 75 MCG TAB PO SCH (06:00)
--- NOTE | 2018-11-30 06:00 | NUR ---
PT STILL REFUSING RECTAL TEMP. RECHECKED ORAL TEMP READING 94.6. PT IS COMFORTABLE. NO COMPLAINTS VOICED.
[2018-11-30 06:31] LABS: ALBUMIN 2.5 g/dL (3.5-5.0); ALBUMIN/GLOBULIN RATIO 0.7 (0.8-2.0); ANION GAP 16.5 mmol/L (8-16); CALCIUM 8.6 mg/dL (8.4-10.2); CREATININE, SERUM 2.74 mg/dL (0.57-1.11); POTASSIUM 4.5 mmol/L (3.5-5.1)
--- NOTE | 2018-11-30 07:18 | NUR ---
Received patient and walking rounds complete. Patient sitting in recliner at this time, no signs of distress. Call light in reach, will continue to monitor.
[2018-11-30] MEDS: POLYETHYLENE GLYCOL 3350 17 GM PACK PO SCH ×2 (09:00→15:48)
[2018-11-30] MEDS: GLIMEPIRIDE 2 MG TAB PO SCH (09:24)
[2018-11-30] MEDS: CHOLECALCIFEROL 1,000 UNIT TAB PO SCH (09:24)
[2018-11-30] MEDS: CARVEDILOL 12.5 MG TAB PO SCH ×2 (09:24→16:08)
[2018-11-30] MEDS: METOLAZONE 5 MG TAB PO SCH (09:24)
[2018-11-30] MEDS: FLUCONAZOLE 100 MG TAB PO SCH (09:24)
[2018-11-30] MEDS: SITAGLIPTIN 100 MG TAB PO SCH (09:24)
[2018-11-30] MEDS: HYDRALAZINE HCL 25 MG TAB PO SCH ×3 (09:24→21:05)
[2018-11-30] MEDS: DOXYCYCLINE HYCLATE TABLET 100 MG TAB PO SCH (09:24)
[2018-11-30] MEDS: INSULIN LISPRO 100 UNIT/1 ML 3ML VIAL SQ SCH ×4 (09:27→21:05)
--- NOTE | 2018-11-30 10:45 | NUR ---
Patient A/O X3, even respirations on 4LNC. Bowel sounds active, skin intact, 2+ pitting edema in BLE. Jose hose in place bilaterally. Left hand 22 gauge SL. Patient is ambulatory with assistance. Voids in bedside commode/toilet. No signs of distress at this time, call light in reach. Will continue to monitor.
--- NOTE | 2018-11-30 14:01 | NUR ---
CM SPOKE TO PATIENT AT BEDSIDE REGARDING HOME HEALTH ORDER. PATIENT REFUSES HOME HEALTH AND STATES SHE IS ABLE TO MAKE APPOINTMENTS IN AN OUTPATIENT SETTING. HER IS ABLE TO DRIVE HER IF NECESSARY. PATIENT GIVEN CHOICES FOR OUTPATIENT REHABS. PATIENT CHOSE [facility]. CHOICE LETTER SIGNED AND PLACED IN CHART. PATIENT FACESHEET AND ORDER REQUESTED AND SENT TO [facility] FAX: [phone]
[2018-12-01] VITALS (9 sets, daily range): BP systolic 135–167; BP diastolic 65–77
[2018-12-01] MEDS: LEVOTHYROXINE SODIUM 75 MCG TAB PO SCH (05:23)
[2018-12-01 05:40] LABS: BASOPHILS % 0.5 % (0.0-1.0); EOSINOPHILS # (AUTO) 0.7 (0.0-0.4); EOSINOPHILS % 8.9 % (0.0-6.0); HEMATOCRIT 27.6 % (34.2-44.1); HEMOGLOBIN 8.6 g/dL (12.0-16.0); LYMPHOCYTES # (AUTO) 1.4 (1.0-3.2); LYMPHOCYTES % 16.9 % (18.0-39.1); MEAN CORPUSCULAR HEMOGLOBIN 24.7 pg (28-32); MEAN CORPUSCULAR HGB CONC 31.2 g/dL (31-35); MEAN CORPUSCULAR VOLUME 79.3 fL (81-99); MONOCYTES # (AUTO) 0.9 (0.2-0.8); MONOCYTES % 10.6 % (4.4-11.3); NEUTROPHILS # (AUTO) 5.2 (2.1-6.9); NEUTROPHILS % 62.6 % (38.7-80.0); PLATELET COUNT 391 x10e3/uL (140-360); RED BLOOD COUNT 3.48 x10e6/uL (3.6-5.1); RED CELL DISTRIBUTION WIDTH 18.4 % (11.7-14.4)
[2018-12-01 06:22] LABS: ALBUMIN 2.5 g/dL (3.5-5.0); ALBUMIN/GLOBULIN RATIO 0.7 (0.8-2.0); ANION GAP 16.5 mmol/L (8-16); CALCIUM 8.6 mg/dL (8.4-10.2); CREATININE, SERUM 2.69 mg/dL (0.57-1.11); POTASSIUM 4.5 mmol/L (3.5-5.1)
[2018-12-01] MEDS: ALBUTEROL SULF 0.083% NEB SOLN 3 ML NEB NEB PRN ×2 (07:00→20:11)
--- NOTE | 2018-12-01 07:03 | NUR ---
Received patient sitting on recliner, call light within reach. AAOX4 to time, person, place, situation. Respirations even and unlabored.Denies pain. Will continue to monitor.
[2018-12-01] MEDS: INSULIN LISPRO 100 UNIT/1 ML 3ML VIAL SQ SCH ×4 (07:30→20:55)
--- NOTE | 2018-12-01 07:30 | NUR ---
FSBG 63. Apple juice given to patient. Will continue to monitor.
[2018-12-01] MEDS: POLYETHYLENE GLYCOL 3350 17 GM PACK PO SCH ×2 (08:06→17:00)
[2018-12-01] MEDS: HYDRALAZINE HCL 25 MG TAB PO SCH ×3 (08:07→21:02)
[2018-12-01] MEDS: METOLAZONE 5 MG TAB PO SCH (08:07)
[2018-12-01] MEDS: CHOLECALCIFEROL 1,000 UNIT TAB PO SCH (08:07)
[2018-12-01] MEDS: BUMETANIDE 1 MG TAB PO SCH ×2 (08:07→16:00)
[2018-12-01] MEDS: CARVEDILOL 12.5 MG TAB PO SCH ×2 (08:07→16:00)
[2018-12-01] MEDS: GLIMEPIRIDE 2 MG TAB PO SCH (11:30)
[2018-12-01] MEDS: SITAGLIPTIN 100 MG TAB PO SCH (11:30)
--- NOTE | 2018-12-01 11:38 | NUR ---
Per PT. patient desaturated to 87% on 2L NC when ambulating. aware. See orders. RT notified of orders
--- NOTE | 2018-12-01 13:45 | NUR ---
CM SPOKE TO PATIENT REGARDING HOME O2 ORDER THAT PATIENT QUALIFIED FOR. PATIENT GIVEN CHOICES. PATIENT CHOSE [facility]. CHOICE LETTER SIGNED AND PLACED IN CHART. CLINICAL SENT TO [facility]. [facility] Address: [address], [place] [address] FAX: [phone] PENDING DELIVERY AT BEDSIDE FOR DISCHARGE.
--- NOTE | 2018-12-01 16:10 | NUR ---
[facility] PENDING AUTH TO DELIVER EQUIPMENT TO BEDSIDE. POSSIBLY DELIVER TONIGHT BUT THEY HAVE TO WAIT FOR APPROVAL BY INSURANCE. ANTICIPATE DELIVERY FOR TOMORROW MORNING. PLEASE NOTIFY CM TO FOLLOW UP IN THE MORNING ON 12/02.
--- NOTE | 2018-12-01 18:45 | NUR ---
S aware of d/c planning. Per "patient will not be discharged today"
--- NOTE | 2018-12-01 19:05 | NUR ---
Report given to oncoming nurse of patient's status. No s/s of acute distress noted. Home O2 Tank at bedside (brought by [facility]).
[2018-12-02] VITALS: BP 159/71
[2018-12-02 04:00] VITALS: BP 166/66
[2018-12-02] MEDS: LEVOTHYROXINE SODIUM 75 MCG TAB PO SCH (05:28)
[2018-12-02] MEDS: ALBUTEROL SULF 0.083% NEB SOLN 3 ML NEB NEB PRN (07:13)
[2018-12-02] MEDS: POLYETHYLENE GLYCOL 3350 17 GM PACK PO SCH (09:00)
[2018-12-02 09:09] VITALS: BP 169/77
[2018-12-02] MEDS: GLIMEPIRIDE 2 MG TAB PO SCH (09:12)
[2018-12-02] MEDS: CARVEDILOL 12.5 MG TAB PO SCH (09:13)
[2018-12-02] MEDS: CHOLECALCIFEROL 1,000 UNIT TAB PO SCH (09:13)
[2018-12-02] MEDS: SITAGLIPTIN 100 MG TAB PO SCH (09:13)
[2018-12-02] MEDS: HYDRALAZINE HCL 25 MG TAB PO SCH (09:13)
[2018-12-02] MEDS: BUMETANIDE 1 MG TAB PO SCH (09:13)
[2018-12-02] MEDS: INSULIN LISPRO 100 UNIT/1 ML 3ML VIAL SQ SCH ×2 (09:13→12:30)
--- NOTE | 2018-12-02 09:20 | Progress Note ---
DATE: Progress Note SUBJECTIVE: The patient is here for CHF exacerbation, pvwyv-sk-kkkqbns kidney disease, and anemia of chronic disease. Patient is currently asymptomatic, wanting to go home. Still weak. No chest pain. No shortness of breath. MEDICATIONS: Acetaminophen, Bumex, carvedilol, glimepiride, hydralazine, as needed levothyroxine, and also patient is on Januvia. OBJECTIVE: VITAL SIGNS: Temperature is 96.4, pulse of 93, respirations of 18, blood pressure is 166/66, and pulse oximetry of 97%. HEENT: Normocephalic and atraumatic. Chronically-ill appearing, short of breath and hypoxic too. CARDIOVASCULAR: S1 and S2 normal. Ejection systolic murmur is present. LUNGS: Clear to auscultation bilaterally. EXTREMITIES: Positive for 1+ edema. NEUROLOGIC: Nonfocal. LABORATORY VALUES: The patient's white count is 8.33, hemoglobin of 8.6, and hematocrit of 27.6. Chemistry, sodium of 134, BUN 65, and creatinine of 2.69 from yesterday. Glucoses have been trending in the 90s to 180s. ASSESSMENT: 1. Moobo-pa-lqvxobn congestive heart failure. 2. Generalized anasarca. 3. Btnxl-uz-ebskaao kidney disease. 4. Hypertension. 5. Anemia of chronic disease. 6. Debility. 7. Hypoxia. PLAN: Plan is to continue monitor the patient. BUN and creatinine have been monitored. The patient can go home on Bumex. The patient will be followed up with Dr. Oglesby and also with on an outpatient basis. Further recommendation and clinical course, we will continue to monitor the patient. The patient can be discharged. Discharge medications including Bumex patient. MD TOMI Cade/HUSSEINL /[id number]
[2018-12-02 10:04] VITALS: BP 169/77
--- NOTE | 2018-12-02 11:22 | NUR ---
PAGED DR. MACIAS FOR OK TO D/C HOME ORDERS. AWAITING CALL BACK.
--- NOTE | 2018-12-02 11:50 | NUR ---
RECEIVED CALL BACK FROM DR. SESAY STATES HE WILL SEE PT LATER TODAY AND DECIDE IF SHE IS OK TO D/C HOME.
[2018-12-02 12:00] VITALS: BP 175/78
--- NOTE | 2018-12-02 14:30 | NUR ---
PER DR. SESAY PT CAN D/C HOME FROM RENAL STANDPOINT.
--- NOTE | 2018-12-02 14:37 | NUR ---
SPOKE WITH RUBIA AT [facility] ([phone]) STATES PT NEEDS TO CALL WHEN SHE ARRIVES HOME AND CASEWORK SPECIALIST WILL DELIVER HER OXYGEN. PT HAS O2 TANK IN ROOM THAT WAS DELIVERED YESTERDAY WHICH WILL ONLY LAST HER 6 HOURS. PT INSTRUCTED TO CALL SOON SHE ARRIVES HOME. PT VERBALIZED UNDERSTANDING.
[2018-12-02] MEDS ORDERED: BUMETANIDE1 MG PO (14:44)
[2018-12-02] MEDS ORDERED: HYDRALAZINE HCL25 MG PO (14:44)
[2018-12-02] MEDS ORDERED: HYDRALAZINE HCL 25 MG TAB PO SCH (15:00)
--- NOTE | 2018-12-04 06:08 | Discharge Summary ---
DISCHARGE DIAGNOSES: 1. Ynezb-vv-kopyqao systolic and diastolic heart failure. 2. Diabetes. 3. Chronic kidney disease, stage 3. 4. Hypertension. 5. Anxiety. HISTORY OF PRESENT ILLNESS AND HOSPITAL COURSE: See hospital chart for full details. The patient was later admitted with increasing dyspnea on exertion, orthopnea, and weight gain, secondary to her CHF. She was brought and placed on IV diuretic therapy, which caused a significant amount of weight loss and fluid loss. She was seen by both her hospice executive director and Renal who helped to optimize her diuretic therapy and at the time of discharge, she was ambulating well, eating well, had lost tremendous amount of weight, was able to breathe much easier, so she was able to be discharged home in good condition. She will follow up in two weeks with me. Please see hospital chart for full details. MD MATILDA Bruce/CODY /[id number]
== END 2018-12-02 15:16 | disposition home or self-care (01) | DRG 291 ==
LOC: ER 11:23 → ERHOLD 11:55 → MED/SURG 16:19
PROVIDERS: ADMIT Internal Medicine; ATTEND Internal Medicine
DX: I13.0 Hypertensive heart and chronic kidney disease with heart failure and stage 1 through stage 4 chronic kidney disease, or unspecified chronic kidney disease (principal); J96.21 Acute and chronic respiratory failure with hypoxia; I50.23 Acute on chronic systolic (congestive) heart failure; N18.4 Chronic kidney disease, stage 4 (severe); N17.9 Acute kidney failure, unspecified; Z68.42 Body mass index [BMI] 45.0-49.9, adult; N04.9 Nephrotic syndrome with unspecified morphologic changes; I42.9 Cardiomyopathy, unspecified; E11.22 Type 2 diabetes mellitus with diabetic chronic kidney disease; E11.65 Type 2 diabetes mellitus with hyperglycemia; E03.9 Hypothyroidism, unspecified; E66.01 Morbid (severe) obesity due to excess calories; J44.9 Chronic obstructive pulmonary disease, unspecified; E78.5 Hyperlipidemia, unspecified; Z79.899 Other long term (current) drug therapy; Z79.84 Long term (current) use of oral hypoglycemic drugs; F41.9 Anxiety disorder, unspecified; R60.0 Localized edema; D63.1 Anemia in chronic kidney disease
CPT/HCPCS: 36415; 71045; 76770; 80048; 80053; 80061; 81001; 81050; 82550; 82553; 82575; 82948; 83735; 83880; 84156; 84443; 84484; 85025; 85610; 85730; 87086; 93005; 93306; 94640; 96365; 96372; 96376; 97139; 99284; J1650; J1940

== ENCOUNTER 2018-12-13 13:55 | Outpatient (RCR) | payer BC ==
[~2018-12-13 13:55] MED LIST changes: +BUMETANIDE1 MG PO; +FLUCONAZOLE100 MG PO; +LEVOTHYROXINE75 MCG PO
== END 2018-12-17 ==
LOC: PT 13:55
PROVIDERS: ATTEND Internal Medicine
DX: I50.9 Heart failure, unspecified (principal); R53.83 Other fatigue; M62.81 Muscle weakness (generalized); R26.2 Difficulty in walking, not elsewhere classified

== ENCOUNTER 2019-01-15 14:00 | Outpatient (RCR) | payer BC | END 2019-01-16 | LOC: PT 14:00 | PROVIDERS: ATTEND Internal Medicine | DX: R53.83 Other fatigue (principal); I50.9 Heart failure, unspecified; R26.2 Difficulty in walking, not elsewhere classified ==

== ENCOUNTER 2019-02-14 13:36 | Outpatient (RCR) | payer BC | END 2019-02-16 | LOC: PT 13:36 | PROVIDERS: ATTEND Internal Medicine | DX: I50.9 Heart failure, unspecified (principal); R53.83 Other fatigue; M62.81 Muscle weakness (generalized); R26.2 Difficulty in walking, not elsewhere classified ==

== ENCOUNTER 2019-03-02 13:52 | Outpatient (RCR) | payer BC | END 2019-03-18 | LOC: PT 13:52 | PROVIDERS: ATTEND Internal Medicine | DX: I50.9 Heart failure, unspecified (principal); R53.83 Other fatigue | CPT/HCPCS: 97139 ==